=== PATIENT | female | born 1995 | race Caucasian/White ===

== ENCOUNTER 2024-09-15 12:53 | Inpatient (IN) | payer SELFPAY ==
--- OUTSIDE RECORDS SUMMARY | 2024-01-09 11:37 | XMS_ITS ---
Author Organization [facility] Accounts Recei vable Address [address] [place] [address] Care Team Providers Care Thread Trimmer Name Role Phone Neville Jessica Primary Care Provider [phone] REASON FOR VISIT Hospital/ER Follow-Up Non TCM* Social History Sex Assigned At : Social History Observation Description Sex Assigned At Female Encounters Encounter Location Date Provider Diagnosis [address] [place] [address] 01/09/2024 Jessica Lozada Plan Of Treatment No Information Progress Notes * Monica DONG MDOB:1995 (28 yo F)Acc No.[id number]:01/09/2024 Patient: Nisha RACHEL Monica Keith :1995 A ge:28 Y S ex:Female [address] [facility] [place] [address] * true * Date: Generated for Printi ng/Faxing/eTransmitting on: 0 09/15/2024 01:08 PM CDT
--- OUTSIDE RECORDS SUMMARY | 2024-01-30 03:43 | XMS_ITS ---
Author Organization [facility] Accounts Recei vable Address [address] [place] [address] Care Team Providers Care Student Services Counselor Name Role Phone Neville Jessica Primary Care Provider REASON FOR VISIT Transition of Care: Medical* Social History Sex Assigned At : Social History Observation Description Sex Assigned At Female Encounters Encounter Location Date Provider Diagnosis [address] [place] [address] 01/30/2024 Jessica Lozada Plan Of Treatment No Information Progress Notes * Monica DONG MDOB:1995 (28 yo F)Acc No.[id number]:01/30/2024 Patient: Monica KNOX :1995 A ge:28 Y S ex:Female Address[facility] [address] [facility] [place] [address] Subjective: * Chief Complaints: * T ransition of Care: Medical* * HPI: T ransition of Care: Transition of Care Follow-Up T yue's Date 1 04/01/2023 [facility] Status I n-Patient H ospitalization Type M edical D ate of Discharge 1 03/30/2023 D ate contacted by [facility] Nurse 1 04/01/2023 * Medical History: * Surgical History: * Hospitalization/Major Diagno stic Procedure: * Medications: Objective: * Vitals: * Physical Examination: Assessment: Plan: * Treatment: * Procedure Codes: * true * Date: Generated for Terri sanabria/Cindi/eTransmitting on: 0 09/15/2024 01:09 PM CDT History and Physical Notes * HPI (History of Present Illness) Category Sub-Category Detail Notes Transition of Care Transition of Care Follow-Up Today' s Date: 01/30/2024 Hospital Name: [facility] Hospitalization Status: In-Patient Hospitalization Type: Medical Date of Discharge: 01/28/2024 Date contacted by [facility] Nurse:
--- OUTSIDE RECORDS SUMMARY | 2024-03-03 04:15 | XMS_ITS ---
Author Organization [facility] Address [address], [place] [address] Care Team Providers Care Meat Hostess Name Role Phone Renee Silva Primary Care Provider REASON FOR VISIT 2 wk f/u pp depression Encounters Encounter Location Date Provider Diagnosis [facility] [address] [facility] [place] [address] 03/03/2024 Renee Silva Plan Of Treatment No Information Progress Notes * TIFFANY DONGOB:1995 ([age] yo F)Acc No.[id number]:03/03/2024 Progress Notes Patient: SHILA KNOX Provider: Klaus Silva MD :1995 A ge:28 Y S ex:Female Date:03/03/2024 [address] [facility] Subjective: * Chief Complaints: * 1 . 2 wk f/u pp depression. * Medical History: * Control Panel Builder History: P eriods : i rregular, heavy [...] 0 09/19/2018, normal spontaneous vaginal delivery (), [facility] Dr. Zavala, Male infant. P regnancy # 2: 0 2021:, normal spontaneous vaginal delivery (), [facility] Dr. Zavala, Male infant, 8lb 3oz. P regnancy # 3 1 03/29/2023, normal spontaneous vaginal delivery () @ 40.3 weeks, [facility]- Dr. Silva, Female. Objective: * Vitals: Assessment: Plan: * Treatment: * * Electronic signature of Renee Silva MD on 09/15/2024 at 01:08 PM CDT Sign off status: Pending * Provider: Klaus Silva MD Date: 0 03/03/2024 Generated for Terri sanabria/Cindi/Rajivitting on: 0 09/15/2024 01:08 PM CDT
--- OUTSIDE RECORDS SUMMARY | 2024-03-18 09:30 | XMS_ITS ---
Author Organization [facility] Address [address] [place], [place] [address] Care Team Providers Care Director Of Email Marketing Name Role Phone Renee Silva Primary Care Provider REASON FOR VISIT 2 wk f/u pp depression Encounters Encounter Location Date Provider Diagnosis [facility] [address] [facility] [place] [address] 03/18/2024 Renee Silva Plan Of Treatment No Information Progress Notes * TIFFANY DONGOB:1995 ([age] yo F)Acc No.[id number]:03/18/2024 Progress Notes Patient: SHILA KNOX Provider: Klaus Silva MD :1995 A ge:28 Y S ex:Female Date:03/18/2024 [address] [facility] Subjective: * Chief Complaints: * 1 . 2 wk f/u pp depression. 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 Zavala, Male infant. P regnancy # 2: 0 2021:, normal spontaneous vaginal delivery (), [facility] Dr. Zavala, Male infant, 8lb 3oz. P regnancy # 3 1 03/29/2023, normal spontaneous vaginal delivery () @ 40.3 weeks, [facility]- Dr. Silva, Female. Objective: * Vitals: Assessment: Plan: * Treatment: * * Electronic signature of Renee Silva MD on 09/15/2024 at 01:08 PM CDT Sign off status: Pending * Provider: Klaus Silva MD Date: 03/18/2024 Generated for Terri sanabria/Cindi/Rajivitting on: 0 09/15/2024 01:08 PM CDT
--- OUTSIDE RECORDS SUMMARY | 2024-04-03 06:20 | XMS_ITS ---
Author Organization [facility] Accounts Recei vable Address [address] [place] [address] Care Team Providers Care Debit Agent Name Role Phone Jessica Lozada Primary Care Provider Allergies No Known Allergies Results Component Value Reference Range Notes Urinalysis, Routine Reviewed date:04/03/2024 02:31:32 PM Interpretation: Performing Lab: Notes/Report: Glucose Negative Bilirubin Negative Ketones Negative Specific [place] >=1.030 Blood Trace pH 6.0 Protein Negative Urobilinogen,Semi-Qn 0.2 Nitrite, Urine Positive Leukocyte Estrace Negative CHLAMYDIA/N. GONORRHOEAE RNA , TMA URINE/SURESWAB Reviewed date:04/08/2024 12:13:24 PM Interpretation: Performing Lab:[place], [facility]-[id number] Ramonita Pina, [id number] Haroon Hammond MD Notes/Report: NON-FASTING NON-FASTING CHLAMYDIA TRACHOMATIS RNA, TMA, UROGENITAL NOT DETECTED NOT DETECTED NEISSERIA GONORRHOEAE RNA, TMA, UROGENITAL NOT DETECTED NOT DETECTED CULTURE, URINE, ROUTINE Reviewed date:04/08/2024 12:13:24 PM Interpretation: Performing Lab:[place], [facility] [facility] Bill [id number] Abel Mendez M.D. Notes/Report: NON-FASTING NON-FASTING URINE CULTURE [id number] Routine Cultures SPECIMEN: Urine SOURCE: URINE FINAL REPORTS Verified Date/Time: 04/05/2024 09:49 BIOFUELS MANAGER 10,000-50,000 cfu/ml Escherichia coli 50,000-100,000 cfu/ml Escherichia [...] Nonsmoker Encounters [facility] [address] [facility] [place] [address] 04/03/2024 Jessica Lozada Dysuria R30.0 ; Acut e UTI N39.0 [...] * Monica DONG MDOB:1995 (28 yo F)Acc No.[id number]:04/03/2024 Progress Notes Patient: Monica KNOX Provider: Emmie Lozada APRN :1995 A ge:28 Y S ex:Female Date:04/03/2024 Address:[address] [place], [place] [id number] Patient's Default Facility:[facility] Baljinder Check In:11:21 AM CSTCheck O ut:11:43 AM BIOFUELS MANAGER Subjective: * Chief Complaints: * p ossible [...] or heat intolerance, NO symptoms reported. H ematologic:?Denies: , unusual bruising or bleeding, enlarged lymph [...] Diagno stic Procedure: U pper EXtremity Injury .[facility] 11.29.2018 * Family History: F ather: alive. M other: alive. 1 son(s) - healthy. . * Social History: S ocial Determinants of Health Would you like a staff member from [facility] to help you access community resources [...] * Jessica Lozada 04/07/2024 01: 07:24 PM BIOFUELS MANAGER >neg for sti. shows uti. finish abx. Brenda Sullivan 04/08/2024 12:11:30 PM BIOFUELS MANAGER >ttc client-phone is not in service. Sending letter. ?LAB: Urinalysis, Routine (Collection Date & Time - 04/03/2024)* Value Reference Range G lucose Negative * B ilirubin Negative * K etones Negative * S pecific [place] >=1.030 * B lood Trace * p H 6.0 * P rotein Negative * U robilinogen,Semi-Qn 0.2 * N itrite, Urine Positive * L eukocyte Estrace Negative * Malorie Spivey 04/03/2024 11:4 8:28 AM BIOFUELS MANAGER > Culture sent to [facility].Jessica Lozada 04/03/2024 02:31:24 PM BIOFUELS MANAGER >culture sent 2.?Acute UTI? Start Cephalexin Capsule, 500 MG, 1 capsule, Orally, every 6 hrs, 7 days, 28 Capsule, Refills 0. ?LAB: CULTURE, URINE, ROUTINE (Collection Date & Time - 04/03/2024 11:52 AM) * Value Reference Range C ULTURE [id number] - * Jessica Lozada 04/07/2024 01: 07:24 PM BIOFUELS MANAGER >neg for sti. shows uti. finish abx. Brenda Sullivan 04/08/2024 12:11:30 PM BIOFUELS MANAGER >ttc client-phone is not in service. Sending [...] AM) * Value Reference Range C ULTURE [id number] - * Jessica Lozada 04/07/2024 01: 07:24 PM BIOFUELS MANAGER >neg for sti. shows uti. finish abx. Brenda Sullivan 04/08/2024 12:11:30 PM BIOFUELS MANAGER >ttc client-phone is not in service. Sending letter. 4.?Others? Notes: A Healthy Lifestyle: Care Instructions material was printed?? * Procedure Codes: 8 1003 URINALYSIS, AUTO, W/O SCOPE, Modifiers: QW 22887 N.GONORRHOEAE, DNA, AMP PROB (Medicaid)67179 CHYLMD TRACH, DNA, AMP PROBE (Medicaid)12331 URINE BACTERIA CULTURE (Medicaid) * Preventive Medicine: Education : N utrition and Physical Activity Counseling for nutrition provided Y es Counseling for physical activity Y es Date Counseled 0 04/03/2024 P MAIL LIST LIBRARIAN/Huddle Complete?: Pre-Visit Planning Complete Y es B [place] and Dietary Counsultation BMI mgmt provided Y [...] schedule * Billing Information: * Visit Code: 90036 Office Visit, Est Pt., Level 3. * Procedure Codes: 36538 URINALYSIS, AUTO, W/O SCOPE. Modifiers: QW 18577 N.GONORRHOEAE, DNA, AMP PROB (Medicaid). 22579 CHYLMD TRACH, DNA, AMP PROBE (Medicaid). 50599 URINE BACTERIA CULTURE (Medicaid). * UELS MANAGER Sign off status: Completed true * Provider: Emmie Lozada APRN Date: 0 04/03/2024 Generated for Terri sanabria/Cindi/Rajivitting on: 0 09/15/2024 01:08 PM CDT History and Physical Notes * [...]
--- OUTSIDE RECORDS SUMMARY | 2024-06-24 08:15 | XMS_ITS ---
Author Organization [facility] Address [address], [place] [address] Care Team Providers Care Grocery Clerk Marking Name Role Phone Renee Silva Primary Care Provider [phone] REASON FOR VISIT F/U on meds Medications Medication SIG (Take, Route, Frequency, Duration) Notes Start Date End Date Status Cephalexin 500 MG TAKE 1 CAPSULE BY MO [facility] EVERY 8 HOURS FOR 7 DAYS Oral; Duration: 7 Days Not-Takin g Melatonin Not-Taking Cephalexin 500 MG 1 capsule (uti) Oral ly twice daily; Duration: 7 days 03/05/2024 Active Sertraline HCl 50 MG 1 tablet Orally Once a day; Duration: 30 days Depression 02/11/2024 Active Classic 28-0.8 MG 1 tablet Orally Once a day Not-Taking Vitamin 27-0.8 MG 1 tablet Orally daily; Duration: 90 days Not-Taking Ibuprofen 600 MG 1 tablet Orally Thre e times a day as needed for pain; Duration: 30 days Not-Taking Colace 100 MG 1 capsule Orally twi ce daily as needed to keep stools soft; Duration: 30 day(s) Not-Taking Encounters Encounter Location Date Provider Diagnosis [facility] [address] [facility] [place] [address] 06/24/2024 Renee Silva Plan Of Treatment No Information Progress Notes * SOY, TIFFANYOB:1995 ([age] yo F)Acc No.[id number]:06/24/2024 Progress Notes Patient: SHILA KNOX Provider: Klaus Silva MD :1995 A ge:28 Y S ex:Female Date:06/24/2024 Address:[address] [place] [address], [id number] Subjective: * Chief Complaints: * 1 . F/U on meds. * Medical History: * Medications: T aking Sertraline HCl 50 MG Tablet 1 tablet Orally Once a day Depression, Taking Cephalexin 500 MG Capsule 1 capsule (uti) Orally twice daily , Not- Taking/PRN Classic 28-0.8 MG Tablet 1 tablet Orally Once a day , Not-Taking/PRN Colace 100 MG Capsule 1 capsule Orally twice daily as needed to keep stools soft , Not-Taking/PRN Ibuprofen 600 MG Tablet 1 tablet Orally Three times a day as needed for pain , Not-Taking/PRN Vitamin 27-0.8 MG Tablet 1 tablet Orally daily , Not-Taking/PRN Melatonin , Not-Taking/PRN Cephalexin 500 MG Capsule TAKE 1 CAPSULE BY MOUTH EVERY 8 HOURS FOR 7 DAYS Oral Objective: * Vitals: Assessment: Plan: * Treatment: * * Electronic signature of Renee Silva MD on 09/15/2024 at 01:09 PM CDT Sign off status: Pending * Provider: Klaus Silva MD Date: 06/24/2024 Generated for Terri sanabria/Cindi/Alphonse on: 09/15/2024 01:09 PM CDT
[2024-09-15 12:54] VITALS: BMI 25.1
--- NOTE | 2024-09-15 12:57 | XRR_ITS ---
PROCEDURE INFORMATION: Exam: XR Chest Exam date and time: 09/15/2024 1:00 PM Age: 29 years old Clinical indication: Pain; Angina pectoris; Additional info: Cp TECHNIQUE: Imaging protocol: Radiologic exam of the chest. Views: 1 view. COMPARISON: No relevant prior studies available. FINDINGS: Lungs: No focal consolidation. Pleural spaces: No pleural effusion. No pneumothorax. Heart/Mediastinum: No cardiomegaly. Bones/joints: Unremarkable. XR/XR chest 1V portable [id number] IMPRESSION: No acute pulmonary process.
[2024-09-15 13:02] VITALS: BP 141/71; PULSE 78; RESP 16; TEMP 36.7; O2SAT 97
--- NOTE | 2024-09-15 13:05 | PC.NURSE ---
PATIENT CONTINUES TO STATE THAT IS GOING TO [facility].
--- OUTSIDE RECORDS SUMMARY | 2024-09-15 13:08 | XMS_ITS | Patient Health Record ---
Author Organization [facility] Address [address] [place] [address] Care Team Providers Care Deicer Repairer Name Role Phone Jessica Lozada APRN Primary Care Provider Talib Pearson [phone] Allergies No Known Allergies Reason For Referral No Information Social History Tobacco Use: Social History Observation Description Date Details (start date - stop date) Former Smoker NA - NA Social History Drugs/Alcohol: Social Info Question Answer Notes Alcohol Screen (Audit-C) Did you have a drink containing alcohol in the past year? No Points 0 Interpretation Negative Drugs Have you used drugs other than those for medical reasons in the past 12 months? No Tobacco Use: Social Info Question Answer Notes xTobacco Use/Smoking Are you a former smoker Additional Findings: Tobacco User e-Cigarette Tobacco use other than smoking: Are you an other tobac co user? No Problems Problem Type SNOMED Code ICD Code Onset Dates Problem Status W/U Status Risk Notes Problem Acute urinary tract infection (682061956) Acute UTI (N39.0) Active confirmed Problem Right renal stone (N20.0) Active confirmed Plan Of Treatment Pending Test Test Name Order Date Abdomen [id number] 07/17/2022 Medical (General) History Medical History History ICD Code right renal stone Surgical History Surgery Date(Month/Year) cholecystectomy left elbow fracture repair
--- OUTSIDE RECORDS SUMMARY | 2024-09-15 13:08 | XMS_ITS | Patient Health Record ---
Author Organization [facility] Accounts Recei vable Address [address] [place] [address] Care Team Providers Care [employer] Roofer Name Role Phone Jessica Lozada Primary Care Provider IanDionicio Unavailable [phone] Allergies No Known Allergies Results Component Value Reference Range Notes Urinalysis, Routine Reviewed date:04/03/2024 02:31:32 PM Interpretation: Performing Lab: Notes/Report: Glucose Negative Bilirubin Negative Ketones Negative Specific Hagan >=1.030 Blood Trace pH 6.0 Protein Negative Urobilinogen,Semi-Qn 0.2 Nitrite, Urine Positive Leukocyte Estrace Negative CHLAMYDIA/N. GONORRHOEAE RNA , TMA URINE/SURESWAB Reviewed date:04/08/2024 12:13:24 PM Interpretation: Performing Lab:[place], [facility]-[id number] Ramonita Pina, [id number] Haroon Hammond MD Notes/Report: NON-FASTING NON-FASTING CHLAMYDIA TRACHOMATIS RNA, TMA, UROGENITAL NOT DETECTED NOT DETECTED NEISSERIA GONORRHOEAE RNA, TMA, UROGENITAL NOT DETECTED NOT DETECTED CULTURE, URINE, ROUTINE Reviewed date:04/08/2024 12:13:24 PM Interpretation: Performing Lab:[place], [facility] [facility] Bill [id number] Abel Mendez M.D. Notes/Report: NON-FASTING NON-FASTING URINE CULTURE [id number] Routine Cultures SPECIMEN: Urine SOURCE: URINE FINAL REPORTS Verified Date/Time: 04/05/2024 09:49 DRYWALL SPRAYER 10,000-50,000 cfu/ml Escherichia coli 50,000-100,000 cfu/ml Escherichia coli #2 Mixed urogenital josue also present Order Comments O1: Culture Urine (URINE CULTURE) (C Urine) NON-FASTING NON-FASTING Strep-A Screen Reviewed date:10/24/2023 09:26:18 AM Interpretation:Strep Negative: Culturing available, 97% sens., 95% spec., prev. 25% Performing Lab: Notes/Report: Strep Negative: Culturing available, 97% sens., 95% spec., prev. 25% Test Time 5 min Strep Negative: Culturing available, 97% sens., 95% spec., prev. 25% Negative Coronavirus/Influenza Combo (IN HOUSE) Reviewed date:10/24/2023 09:26:18 AM Interpretation:Negative Performing Lab: Notes/Report: Negative Coronavirus Not Detected Influenza A Negative Influenza B Negative Reason For Referral No Information Medications Medication SIG (Take, Route, Frequency, Duration) [...] (12+) Question Answer Notes Tobacco use: Nonsmoker Problems Problem Type SNOMED Code ICD Code Onset Dates Problem Status W/U Status Risk Notes Problem Menstrual disorder (320890420) Irregular menses (N92.6) Active confirmed Problem 57290274 Kidney stone (N20.0) Active confirmed Problem Gastroesophageal reflux disease (949841030) GERD (gastroesopha geal reflux disease) (K21.9) Active confirmed Problem Memory loss (96423690) Memory loss (R41.3) Active confirmed Problem History of infectious disease (767268294) History of chlamydia infection (Z86.19) Active confirmed Problem At moderate risk for dental caries (finding) (409099102) Risk for dental caries, moderate (Z91.842) Active confirmed Problem At high risk for dental caries (finding) (879977253) Risk for dental caries, high (Z91.843) Active confirmed Problem Cerebral cyst (42312518) 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) Active confirmed Problem 236898767 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 Problem Cerebral cyst (52033221) Cyst of brain (G93.0) Active confirmed Vital Signs Heart Rate 76 Minute 10/24/2023 Temperature 97.5 degrees Fahrenheit 10/24/2023 Respiratory Rate 20 /min 10/24/2023 Oximetry 98 Percent 10/24/2023 Blood pressure diastolic 70 mm Hg 10/24/2023 Height 69 in 10/24/2023 Blood pressure systolic 130 mm Hg 10/24/2023 Weight 237.8 lbs 10/24/2023 BMI 35.11 kg/m2 10/24/2023 Encounters Encounter Location Date Provider Diagnosis [address] [address] 01/01/2024 Jessica Lozada [address] [place] [address] 01/09/2024 Jessica Neville [address] [address] 01/30/2024 Jessica Sh[place]f [address] [address] 10/24/2023 Dionicio Sosa Acute cough R05.1 ; Sore throat J02.9 and Runny nose R09.[address] [address] 04/03/2024 Jessica Lozada Dysuria R30.0 ; Acut e UTI N39.0 and Abnormal urinalysis R82.90 Assessments Encounter Date Diagnosis (ICD Code) Assessment Notes Treatment Notes Treatment Clinical Notes 04/03/2024 Acute UTI (ICD-10 - N39.0) Discussed [...] urine for sti. abx sent for uti 10/24/2023 Sore throat (ICD-10 - J02.9) Strep negative. Suspect drainage related. Increase fluids/water. OTC medications per her OB approved list of OTC medications. 10/24/2023 Acute cough (ICD-10 - R05.1) Covid and flu negative. Suspect drainage related. Increase fluids/water. OTC medications per OB approved med list during . Education on s/s to monitor for and to notify provider if any develop or if any concerns. Pt verbalized understanding. 04/03/2024 Dysuria (ICD-10 - R30.0) 04/03/2024 Abnormal urinalysis (ICD-10 - R82.90) 10/24/2023 Runny nose (ICD-10 - R09.89) Flonase as directed. 10/24/2023 Other A Healthy Lifestyle: Care Instructions material was printed 01/01/2024 Other A Healthy Lifestyle: Care Instructions material was printed 04/03/2024 Other A Healthy Lifestyle: Care Instructions material was printed Plan Of Treatment No Information Insurance Providers Payer Name Payer Address Payer Phone Subscriber Number Group Number Insured Name Patient Relationship to Insured Coverage Start Date Coverage End Date [place] [employer] Medicaid Exch [address] [place] [address] [phone] [id number] Monica Dong Self - patient is the insured [employer] for Adults [address] [place] [address] [id number] Monica Dong Self - patient is the insured Medical (General) History Medical History History ICD Code None Surgical History Surgery Date(Month/Year) right foot left capitellar fracture repair 12/07/19 19 cholecystectomy Hospitalization History Reason Date(Month/Year) Upper EXtremity Injury .[facility] 11.29.2018
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
--- NOTE | 2024-09-15 13:14 | ED.C_ITS ---
HPI - Psych 2 General: Chief Complaint: Psychiatric Symptoms Stated Complaint: si Time Seen by Provider: 09/15/24 12:55 Source: patient Mode of arrival: ambulatory Limitations: no limitations History of Present Illness: 29-year-old female who is here from the crisis center for then placed her on a 96-hour hold. Patient crisis center stated she had been having some loose nation she did have a miscarriage over a week ago has been under a lot of stressors she stated she went to kill herself the crisis center. She admits to having passive suicidal thoughts here but is upset she is here under 96-hour hold. She has had previous suicide attempts in the past Associated symptoms: Reports depression and suicidal ideation Related Data Home Medications ?Medication ?Instructions ?Recorded ?Confirmed No Known Home Medications 09/15/2408/27 Allergies Allergy/AdvReac Type Severity Reaction Status Date / Time No Known Allergies Allergy Unverified 09/15/24 14:16 Review of Systems 2 Const: Denies: fever(s), chills, body aches or change in appetite ENMT: Denies: throat pain or dental pain Card: Denies: chest pain Resp: Denies: dyspnea GI: Denies: abdominal pain, nausea, vomiting or diarrhea Musc: Denies: neck pain or back pain Skin/Breast: Denies: rash Neuro: Denies: headache(s) Psych: Reports: depression and suicidal ideation Physical Exam 2 Const: COMMON NORMALS: no acute distress, patient oriented x3 and healthy appearing HENMT: COMMON NORMALS: normocephalic and atraumatic HEAD & SCALP: n ormocephalic and atraumatic Neck/C-Spine: COMMON NORMALS: full ROM and supple Chest: COMMONS NORMALS: normal inspection of the chest Resp: COMMON NORMALS: normal respiratory effort, No retractions, No use of accessory muscles and clear to auscultation bilaterally AUSCULTATION: clear to auscultation bilaterally Cardio: COMMON NORMALS: regular rate, regular rhythm and No murmurs present (Cardio) RATE: regular rate RHYTHM: regular rhythm GI: COMMON NORMALS: Normal to inspection, nondistended, normoactive bowel sounds present, Soft to palpation, non-tender and no masses PALPATION: Yes Soft to palpation Extremity: COMMON NORMALS: normal to inspection and full ROM Neuro: COMMON NORMALS: patient oriented x3, moves all extremities and no focal motor deficits Psych: ATTITUDE: Yes paranoid and Yes bizarre THOUGHT CONTENT: Yes Suicidality present Skin: COMMON NORMALS: no rashes or lesions noted and no wounds GENERAL SKIN EXAM: no rashes or lesions noted Course 2 Vital Signs: Vital signs: Vital Signs Temperature 98.1 F 09/15/24 13:02 Pulse Rate 97 09/15/24 13:48 Respiratory Rate 16 09/15/24 13:02 Blood Pressure 141/71 09/15/24 13:02 Pulse Oximetry 99 09/15/24 13:48 Oxygen Delivery Me thod Room Air 09/15/24 13:48 MDM - Psych Medical Decision Making Patient presents here with depression along with suicidality patient was placed under 96-hour hold by the crisis center. She has been well-appearing here she is medically cleared I spoke to psychiatrist will admit. Medical Records I reviewed the patient's medical records. Lab Data I reviewed the patient's lab results. 09/15/24 13:37 09/15/24 13:37 Radiology Impressions Chest X-Ray 09/15/24 12:57 IMPRESSION: No acute pulmonary process. Laboratory Results WBC 10.88 10^3/uL (3.29-11.43) 09/15/24 13:37 RBC 4.50 10^6/uL (3.85-5.65) 09/15/24 13:37 Hgb 14.50 g/dL (11.27-16.99) 09/15/24 13:37 Hct 43.2 % (36-47) 09/15/24 13:37 MCV 96.0 fl (85-98) 09/15/24 13:37 MCH 32.2 pg (27-33) 09/15/24 13:37 MCHC 33.6 g/dL (30-55) 09/15/24 13:37 RDW 13.3 % (12.1-15.1) 09/15/24 13:37 Plt Count 327 10^3/cmm (157-399) 09/15/24 13:37 MPV 9.4 fL (7.4-10.4) 09/15/24 13:37 Neut % (Auto) 61.4 % 09/15/24 13:37 Lymph % (Auto) 28.6 % 09/15/24 13:37 [place] % (Auto) 4.4 % 09/15/24 13:37 Eos % (Auto) 3.8 % 09/15/24 13:37 Baso % (Auto) 1.6 % 09/15/24 13:37 Neut # (Auto) 6.69 10^3/uL (1.8-7.7) 09/15/24 13:37 Lymph # (Auto) 3.1 10^3/uL (0.8-4.8) 09/15/24 13:37 [place] # (Auto) 0.5 10^3/uL (0.2-0.9) 09/15/24 13:37 Eos # (Auto) 0.4 10^3/uL (0.0-0.8) 09/15/24 13:37 Baso # (Auto) 0.2 10^3/uL (0.0-0.1) H 09/15/24 13:37 Nucleated RBC % (auto) 0 % 09/15/24 13:37 Nucleated RBCs # 0.0 /100WBC 09/15/24 13:37 Sodium 139 mmol/L (136-145) 09/15/24 13:37 Potassium 3.7 mmol/L (3.5-5.1) 09/15/24 13:37 Chloride 104 mmol/L (98-107) 09/15/24 13:37 Carbon Dioxide 21 mmol/L (22-29) L 09/15/24 13:37 Anion Gap 17.7 (5-19) 09/15/24 13:37 BUN 14 mg/dL (6-20) 09/15/24 13:37 Creatinine 0.7 mg/dL (0.5-0.9) 09/15/24 13:37 GFR Calculation 100.4 mL/min (90-130) 09/15/24 13:37 Glucose 99 mg/dL (65-115) 09/15/24 13:37 Calculated Osmolality 289 mOsm/kg (285-295) 09/15/24 13:37 Calcium 9.3 mg/dL (8.5-10.5) 09/15/24 13:37 Total Bilirubin 0.5 mg/dL (0.15-1.2) 09/15/24 13:37 AST 11 U/L (0-32) 09/15/24 13:37 ALT 10 U/L (0-33) 09/15/24 13:37 Alkaline Phosphatase 104 U/L (35-105) 09/15/24 13:37 Total Protein 7.2 g/dL (6.6-8.7) 09/15/24 13:37 Albumin 4.4 g/dL (3.5-5.2) 09/15/24 13:37 Globulin 2.8 g/dL (1.3-4.6) 09/15/24 13:37 HCG, Qual Negative (Negative) 09/15/24 13:49 Salicylates < 0.3 mg/dL (3-10) L 09/15/24 13:37 Urine Opiates Screen Negative ng/mL (Negative) 09/15/24 13:49 Acetaminophen < 5.0 ug/mL (10-30) L 09/15/24 13:37 Ur Barbiturates Screen Negative ng/mL (Negative) 09/15/24 13:49 Ur Phencyclidine Scrn Negative ng/mL (Negative) 09/15/24 13:49 Ur Amphetamines Screen Negative ng/mL (Negative) 09/15/24 13:49 U Benzodiazepines Scrn Negative ng/mL (Negative) 09/15/24 13:49 Urine Cocaine Screen Negative ng/mL (Negative) 09/15/24 13:49 U Marijuana (THC) Screen Positive ng/mL (Negative) H 09/15/24 13:49 Ethyl Alcohol < 10 mg/dL (0-10) 09/15/24 13:37 All radiology interpretation(s) finalized by discharge Discharge Plan Discharge Patient Disposition: Admitted As Inpatient Clinical Impression: Suicidal ideation Condition: Stable Coding Level of Care Code ED 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
--- NOTE | 2024-09-15 13:37 | PC.NURSE ---
Involuntary 96 hour hold rights read and reviewed with patient. Santos from security present during reading of rights. Patient verbalized understandings and copy of rights given to patient.
[2024-09-15 13:42] LABS: Hematocrit 43.2 % (36-47); Hemoglobin 14.50 g/dL (11.27-16.99); Mean Corpuscular HGB Conc 33.6 g/dL (30-55); Mean Corpuscular Hemoglobin 32.2 pg (27-33); Mean Corpuscular Volume 96.0 fl (85-98); Nucleated Red Blood Cells % 0 %; Platelet Count 327 10^3/cmm (157-399); Red Blood Count 4.50 10^6/uL (3.85-5.65); White Blood Count 10.88 10^3/uL (3.29-11.43)
[2024-09-15 13:48] VITALS: PULSE 97; O2SAT 99
[2024-09-15 14:02] LABS: Alanine Aminotransferase 10 U/L (0-33); Albumin Level 4.4 g/dL (3.5-5.2); Alkaline Phosphatase 104 U/L (35-105); Anion Gap 17.7 (5-19); Aspartate Amino Transferase 11 U/L (0-32); Blood Urea Nitrogen 14 mg/dL (6-20); Calcium 9.3 mg/dL (8.5-10.5); Carbon Dioxide 21 mmol/L (22-29); Chloride 104 mmol/L (98-107); Creatinine Clr Calc Pharmacy 134.4784; Globulin 2.8 g/dL (1.3-4.6); Glucose 99 mg/dL (65-115); Osmolality Calculated 289 mOsm/kg (285-295); Potassium 3.7 mmol/L (3.5-5.1); Sodium 139 mmol/L (136-145); Total Protein 7.2 g/dL (6.6-8.7)
[2024-09-15 14:07] LABS: Acetaminophen < 5.0 ug/mL (10-30); Alcohol Level < 10 mg/dL (0-10); Salicylate < 0.3 mg/dL (3-10)
--- NOTE | 2024-09-15 14:16 | PC.PHAR ---
pts' medications last filled at [facility] [phone]. They show last fill of any medications was 04/03/24 for Keflex 500mg q6h and Sertraline 50mg daily. No allergies on her profile, there.
[2024-09-15 14:19] LABS: PCP Screen Urine Negative (Negative)
[2024-09-15 14:46] LABS: HCG Qualitative Urine. Negative (Negative)
[2024-09-15 16:01] VITALS: PULSE 73; RESP 16; O2SAT 98
[2024-09-15 17:26] VITALS: PULSE 78; O2SAT 91
[2024-09-15 20:29] VITALS: BP 91/70; PULSE 64; RESP 18; TEMP 37; O2SAT 100
[2024-09-16 06:00] VITALS: BP 96/55; PULSE 68; RESP 16; O2SAT 98
--- NOTE | 2024-09-16 08:52 | PC.OT ---
OT orders received, chart reviewed. OT attempted though patient was asleep. Attempted to wake though was unsuccessful. RN says they will attempt to wake patient later for medication. Will re-attempt OT evaluation when patient is awake and ready to participate.
[2024-09-16 14:00] VITALS: BP 92/59; PULSE 61; RESP 16; TEMP 36.8; O2SAT 99
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
[2024-09-16 19:56] VITALS: BP 102/58; PULSE 92; RESP 18; O2SAT 97
[2024-09-17 06:00] VITALS: BP 90/50; PULSE 61; RESP 16; O2SAT 96
[2024-09-17 14:00] VITALS: BP 105/67; PULSE 93; RESP 17; TEMP 37.4; O2SAT 99
--- NOTE | 2024-09-17 19:16 | P.NPUPN_ITS ---
Subjective NPU 2 Subjective: Patient presented today reporting that she is doing okay with the medication and having no ill effects from it. We discussed her continuing to use possible Zyprexa Zydis or Haldol as a as needed but potentially regular medication for her emotional instability and reactive agitation. We discussed the likelihood of discharge in the next 48 hours. She denied any side effects to medication. Mental Status Exam 2 MSE Comments: This is a well-nourished, well-developed white female in hospital scrubs with adequate grooming and eye contact. No abnormal movements except for mild psychomotor agitation. Mostly cooperative with exam in mild to moderate distress. Speech was normal rate and decreased volume. Mood described as depressed, affect congruent. Thought process mostly linear. Thought content: Patient denies suicidal or homicidal ideation, there were no delusions reported or noted, she did not report any auditory or visual hallucinations. Reports a voice suggesting self-harm but denies intent, expressing a desire to live for the children. Experiences bad anxiety, exacerbated by current events and paranoia about safety, particularly concerning the children. Reports extreme depression, possibly , with a history of depression throughout life. Describes mood swings from extreme rage to extreme depression. 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 Reports recovering memories related to past trauma. Attention and concentration were intact and memory was mostly reliable but none were formally tested. She is alert and oriented x 3. Insight and judgment are limited, impulse control impaired. Vitals/I&O/Wt Last Vital Signs Temp 98.6 F 09/17/24 19:54 Pulse 72 09/17/24 19:54 Resp 18 09/17/24 19:54 BP 115/78 09/17/24 19:54 Pulse Ox 98 09/17/24 19:54 O2 Del Method Room Air 09/16/24 14:00 Data NPU 09/15/24 13:37 09/15/24 13:37 A&P Assessment and plan 1. Suicidal ideation: 2. Major depressive disorder, recurrent: 3. Borderline personality disorder: 4. PTSD (post-traumatic stress disorder): Plan: This is a 29-year-old white female known to [facility] from past inpatient psychiatric services who reports she presented to a [facility] appointment which led to her being put on a hold which she reports was unnecessary. She reports that depression is present, characterized by extreme mood swings from rage to depression. She also endorses that borderline Personality Disorder (BPD) is also present, contributing to emotional instability and anger issues. There is a history of depression and anxiety, exacerbated by recent life stressors and past trauma. The patient reports feeling as though they are fighting demons, which may suggest internal conflict or distress related to past experiences. There is no current suicidal ideation, but there is a history of self-injurious behavior and a past suicide attempt. 1. Started Wellbutrin XL 150 mg p.o. daily. 2. Continue every 15 minute checks for safety. 3. Encourage individual, group and milieu therapy. 4. Recommend sober living treatment after discharge at the highest level care to which she is willing to commit. 5. Obtain collateral information. 6. Observe against the backdrop of the 96-hour hold. PDMP PDMP Reviewed: Not Reviewed Involuntary Hold Information 2 Hold Status: Legal Status: 96 Hour Hold Date/Time Hold Expires: 09/19/24 @ 13:13 Attestations NPU 2 Medical Necessity Statement*: Inpatient hospitalization is medically necessary to be clinically appropriate intervention at this time. Will monitor medications and make changes as indicated. Likely length of stay 1-3 days. Coding Level of Care Code Acute Code for g Fwd Diagnoses Suicidal ideation R45.851 Major depressive disorder, recurrent F33.9 Borderline personality disorder F60.3 PTSD (post-traumatic stress disorder) F43.10
[2024-09-17 19:54] VITALS: BP 115/78; PULSE 72; RESP 18; TEMP 37; O2SAT 98
[2024-09-18 06:00] VITALS: BP 125/65; PULSE 106; RESP 18; O2SAT 98
[2024-09-18 14:33] VITALS: BP 125/65; PULSE 106; RESP 18; O2SAT 98
== END 2024-09-18 15:40 | disposition home or self-care (01) | DRG 776 ==
LOC: ER 15:53 → NP 16:53
PROVIDERS: Admitting Provider Psychiatry & Neurology Psychiatry; Emergency Provider Emergency Medicine; Visit Provider Psychiatry & Neurology Psychiatry
DX: O99.345 Other mental disorders complicating the puerperium (principal); F33.9 Major depressive disorder, recurrent, unspecified; R45.851 Suicidal ideations; F60.3 Borderline personality disorder; Z86.59 Personal history of other mental and behavioral disorders; Z91.51 Personal history of suicidal behavior; Z63.4 Disappearance and death of family member; Z62.810 Personal history of physical and sexual abuse in childhood; Z62.812 Personal history of neglect in childhood
CPT/HCPCS: 36415; 71045; 80053; 80306; 80307; 81025; 85025; 97150; 97165; 99285; J9999

== ENCOUNTER 2024-11-24 15:10 | Emergency (ER) | payer SELFPAY ==
--- OUTSIDE RECORDS SUMMARY | 2024-01-01 08:00 | XMS_ITS ---
Author Organization [facility] Accounts Recei vable Address [address] [place] [address] Care Team Providers Care Manager Helpdesk Name Role Phone Jessica Butler Primary Care Provider [phone] Allergies No Known Allergies REASON FOR VISIT Right wrist pain, injured Left ankle Pragland Medications Medication SIG (Take, Route, Frequency, Duration) Notes Start Date End Date Status Vitamins 28-0.8 MG 1 tablet Ora lly Once a day Active Fluticasone Propionate 50 MCG/ACT 1 spray in each nostril Nasally 1-2 times a day for 30 days 10/24/2023 Active Social History Tobacco Use: Social History Observation Description Date Details (start date - stop date) Never Smoker NA - NA Sex Assigned At : Social History Observation Description Sex Assigned At Female . Question Answer Notes Are you a: nonsmoker . Question Answer Notes Did you have a drink containing alcohol in the p ast year? No Points 0 Interpretation Negative Depression Screening PHQ-9 (If positive PHQ-2) Question Answer Notes Little interest or pleasure doing things? More t serna half the days Feeling down, depressed, or hopeless? More than half the days Trouble falling or staying a sleep, or sleeping too much? More than half the days Feeling tired or having little energy? More than half the days Poor appetite or overeating? Not at all Feeling bad about yourself-o r that you are failure or have let yourself or family down? Not at all Trouble concentrating on thi ngs, such as reading the newspaper or watching television? Not at all Moving or speaking so slowly that other people could have noticed. Or the opposite- being so fidgety or restless that you have been moving around a lot more than usual Not at all Thoughts that you would be b ba off , or of hurting yourself in some way? Not at all Total Score 8 Intepretation Mild Depression PHQ2 (12+) Question Answer Notes Little interest or pleasure in doing things? Not at all Feeling down, depressed, or hopeless? Not at all Total Score 0 Sexual History: Question Answer Notes Had sex in the past 12 months (vaginal, oral, or anal) Yes with Men only Use protection? No Prevention Strategies discussed: Condoms Have you ever had an STD? Yes Chlamydia? Yes LMP: 08/23/2022 Alcohol Screening (12+) Question Answer Notes Did you have a drink containing alcohol in the p ast year? No Points 0 Interpretation Negative Smoking Status (12+) Question Answer Notes Tobacco use: Nonsmoker Encounters Encounter Location Date Provider Diagnosis [address] [address] 01/01/2024 Jessica Delarosarajeev Right wrist pain M25.531 and Injury of left ankle, initial encounter S99.912A Assessments Encounter Date Diagnosis (ICD Code) Assessment Notes Treatment Notes Treatment Clinical Notes 01/01/2024 Right wrist pain (ICD-10 - M25.531) 01/01/2024 Injury of left ankle, initial encounter (ICD-10 - S99.912A) 01/01/2024 Other A Healthy Lifes tyle: Care Instructions material was printed Plan Of Treatment Treatment Notes Assessment Notes Other A Healthy Lifestyle: Care Instructions material was printed Progress Notes * Monica DONG MDOB:1995 (29 yo F)Acc No.[id number]:01/01/2024 Progress Notes Patient: Monica KNOX Inna Provider: Emmie Lozada APRN :1995 A ge:28 Y S ex:Female Date:01/01/2024 Address[id number] [facility] Subjective: * Chief Complaints: * 1 . Right wrist pain, injured Left ankle Pragland. * HPI: A . General HPI: Established Jair client presents in clinic today for c/o. * ROS: R OS: Constitutional Symptoms: D enies:, fever, weight loss, extreme fatigue . E yes: D enies:, Negative for, double vision, sudden loss of vision. E ars, Nose, Mouth, Throat: D enies: , sore throat, runny nose, ear pain, sinus pain, nasal congeston. C ardiovascular: D enies:, chest pain, palpitations. R espiratory: D enies:, cough, wheezing, shortness of breath. G astrointestinal: D enies: , nausea, vomiting, abdominal pain, constipation, diarrhea, blood in stools, reflux. S kin: D enies:, rash, changing mole, itching, redness. N eurological: D enies:, headache, persistent weakness or numbness on one side of the body, dizziness. M usculoskeletal: D enies: , joint pain, muscle weakness , Body aches. P sychiatric: D enies: , depression, anxiety, suicidal thoughts. E ndocrine: Denies: , excessive thirst, cold or heat intolerance, NO symptoms reported. H ematologic: D enies: , unusual bruising or bleeding, enlarged lymph nodes. A llergic: N egative for, hay fever . F emale: D enies:, irregular menses, frequent or painful urination, dyspareunia, vaginal discharge, breast pain. * Medical History: N one. * Surgical History: r ight foot , left capitellar fracture repair 12/06/2018, cholecystectomy . * Ocular Surgical History: Ocular Surgical History revi ewed with the patient. * Hospitalization/Major Diagno stic Procedure: U pper EXtremity Injury .formerly [facility] 11.29.2018. * Family History: F ather: alive. M other: alive. 1 son(s) - healthy. . * Social History: S ocial Determinants of Health Would you like a staff member from [facility] to help you access community resources that you may qualify for? (Examples: Food, housing, utilities, health insurance, etc) N o P HQ2 (12+) Little interest or pleasure in doing things? N ot at all Feeling down, depressed, or hopeless? N ot at all Total Score 0 D ate of Last PHQ-2 (12+) Date of Last PHQ-2 1 03/02/2023 H ealth Literacy Screening Complete (18+) Health Literacy Screening Completed: Y es Date Completed: 0 07/05/2023 How often do you need to have someone help you when you read instructions, forms or other written material from your doctor or pharmacy?: 1 - Never S moking Status (12+) Tobacco use: N onsmoker D ate of Tobacco Screening Date of Tobacco Screening 1 03/02/2023 D epression Screening PHQ-9 (If positive PHQ-2) Little interest or pleasure doing things? M ore than half the days Feeling down, depressed, or hopeless? M ore than half the days Trouble falling or staying asleep, or sleeping too much? M ore than half the days Feeling tired or having little energy? M ore than half the days Poor appetite or overeating? N ot at all Feeling bad about yourself-or that you are failure or have let yourself or family down? N ot at all Trouble concentrating on things, such as reading the newspaper or watching television? N ot at all Moving or speaking so slowly that other people could have noticed. Or the opposite- being so fidgety or restless that you have been moving around a lot more than usual N ot at all Thoughts that you would be better off , or of hurting yourself in some way? N ot at all Total Score 8 Intepretation M ild Depression D ate of Last PHQ-9 Date of Last PHQ 1 03/02/2023 D epression Follow up Is the PHQ score 10+? N o R ecreational Drug Use (12+) In the last year, did you ever use recreational drugs or prescription drugs for non-medical reasons?: Y es What kind of recreational drugs? M arijuana In the last year, did you ever find yourself using drugs more than you meant to?: Y es In the last year, did you ever think maybe you should cut down on drug use?: Y es Date counseled on the affects of recreational drug use 1 03/02/2023 A lcohol Screening (12+) Did you have a drink containing alcohol in the past year? N o Points 0 Interpretation N egative S exual History Had sex in the past 12 months (vaginal, oral, or anal) Y es with M en only Use protection? N o Prevention Strategies discussed: C ondoms Have you ever had an STD? Y es Chlamydia? Y es LMP: 0 08/23/2022 . Are you experiencing fever, cough or shortness of breath? N o . Have you had a dental visit within the last 6 months? Y es Date answered 0 07/05/2023 . Did you have a drink containing alcohol in the past year? N o Points 0 Interpretation N egative . Are you a: n onsmoker . For you and your household, within the last 12 months were you worried that your food supply would run out before you had money to purchase more? S ometimes true For you and your household, within the last 12 months the food bought didn't last, and you didn't have money to purchase more? S ometimes true * Medications: T aking Vitamins 28-0.8 MG Tablet 1 tablet Orally Once a day , Taking Fluticasone Propionate 50 MCG/ACT Suspension 1 spray in each nostril Nasally 1-2 times a day * Allergies: N .K.D.A. Objective: * Vitals: * Examination: C ase Management: Medication Management: Treatment Goals: Assessment: * Assessment: 1. R ight wrist pain - M25.531 (Primary) 2 . I njury of left ankle, initial encounter - S99.912A Plan: * Treatment: 2.?Injury of left ankle, initial encounter?Imaging: Xray: Ankle, left 3 views Complete (Order Cancelled)* Rosa Maria Solorio 01/10/2024 10:01:46 AM RUSSIAN LANGUAGE INSTRUCTOR >pt n/s 3.?Others? Notes: A Healthy Lifestyle: Care Instructions material was printed?? * Procedure Codes: 7 3110 x-ray exam of wrist, Modifiers: [place], [address] X-RAY EXAM OF ANKLE, Modifiers: [place] ALEXIS * Preventive Medicine: Education : N utrition and Physical Activity Counseling for nutrition provided Y es Counseling for physical activity Y es Date Counseled 03/02/2023 P EMAIL PRODUCTION SPECIALIST/Huddle Complete?: Pre-Visit Planning Complete Y es B CT and Dietary Counsultation BMI mgmt provided Y es Dietary counsultation Order Provided?No Date 1 03/02/2023 T obacco Use Patient counseled on the dangers of tobacco use and urged to quit. 1 03/02/2023 Health Maintenance - Adult: . Status: R efused H ep C Screening: Ages 18-79 Status: s creened H IV: Ages 15-65 Status: s creened I nfluenza Vaccination: Age 6Month+ Status: R efused P ap Smear: Ages 21-64) With no Hysterectomy Status: C urrent Last Done: 2 023 Are you currently ? N o P reventative Dental Visit: Status: P ast due pt educated and encouraged to schedule T etanus Vaccination: Status: R efused . Vision Exam: p ast due pt educated and encouraged to schedule * Billing Information: * Visit Code: * Procedure Codes: 15548 x-ray exam of wrist. Modifiers: ALEXIS HOGAN [address]1222 X-RAY EXAM OF ANKLE. Modifiers: ALEXIS HOGAN * Electronic signature of Sruthi Coe on 11/24/2024 at 03:15 PM CDT Sign off status: Pending * Provider: Emmie Lozada APRN Date: 03/02/2023 Generated for Terri sanabria/Cindi/Alphonse on: 0 11/24/2024 03:15 PM CDT History and Physical Notes * Examination Category Sub-Category Detail Notes Case Management Medication Management: Does andre ent/parent/guardian understand treatment plan/diagnosis?: Yes Was a NEW medication prescribed today?: No Patient/parent/guardian states understan ding of medication regimen: Yes Barriers to adherence? : No Date: 01/01/2024 Treatment Goals: Treatment Goal: Reach healthy w eight Date treatment goal established:: 2022 *Has patient met treatment goal?: No Patient re-educated on treatment goal and SM10/24/2023 Self Managment Goal: Exercise (Physical activity daily) Level of confidence to meet goal per pat ient:: 6 Barriers to reaching treatment goal/SMG: No SMG/Action Plan with healthy living shee t given to patient: 01/01/2024 Do you exercise on a regular basis?: No Additional care managment support:: None at this time
--- OUTSIDE RECORDS SUMMARY | 2024-01-01 08:14 | XMS_ITS ---
Author Organization [facility] Accounts Recei vable Address [address] [place] [address] Care Team Providers Care Tractor Mechanic Name Role Phone Jessica Butler Primary Care Provider REASON FOR VISIT ns Social History Sex Assigned At : Social History Observation Description Sex Assigned At Female Encounters Encounter Location Date Provider Diagnosis [facility] Balj[address] [place] [address] [place] [address] 01/01/2024 Jessica Butler Plan Of Treatment No Information Progress Notes * Monica DONG MDOB:1995 (28 yo F)Acc No.[id number]:01/01/2024 Patient: Monica KNOX :1995 A ge:28 Y S ex:Female [address] [place] [address] * true * Date: Generated for Printi ng/Faxing/eTransmitting on: 0 11/24/2024 03:16 PM CDT
--- OUTSIDE RECORDS SUMMARY | 2024-01-09 11:37 | XMS_ITS ---
Author Organization [facility] Accounts Recei vable Address [address] [place] [address] Care Team Providers Care Tractor Mechanic Name Role Phone Jessica Butler Primary Care Provider REASON FOR VISIT Hospital/ER Follow-Up Non TCM* Social History Sex Assigned At : Social History Observation Description Sex Assigned At Female Encounters Encounter Location Date Provider Diagnosis [address] [facility] [place] [address] 01/09/2024 Jessica Butler Plan Of Treatment No Information Progress Notes * Monica DONG MDOB:1995 (28 yo F)Acc No.[id number]:01/09/2024 Patient: Nisha RACHELMonica :1995 A ge:28 Y S ex:Female Address:[address] [facility] [place] [address] * true * Date: Generated for Printi ng/Faxing/eTransmitting on: 0 11/24/2024 03:15 PM CDT
--- OUTSIDE RECORDS SUMMARY | 2024-01-30 03:43 | XMS_ITS ---
Author Organization [facility] Accounts Recei vable Address [address] [place] [address] Care Team Providers Care Painter Spring Name Role Phone Jessica Butler Primary Care Provider [phone] REASON FOR VISIT Transition of Care: Medical* Social History Sex Assigned At : Social History Observation Description Sex Assigned At Female Encounters Encounter Location Date Provider Diagnosis [address] [place] [address] 01/30/2024 Jessica Butler Plan Of Treatment No Information Progress Notes * Monica DONG MDOB:1995 (28 yo F)Acc No.[id number]:01/30/2024 Patient: Jeanne KNOXdesean Keith :1995 A ge:28 Y S ex:Female [place] [place] [address] Subjective: * Chief Complaints: * T ransition of Care: Medical* * HPI: T ransition of Care: Transition of Care Follow-Up T yue's Date 1 04/01/2023 [facility]spital [facility] H ospital[facility] Status I n-Patient H ospitalization Type M edical D ate of Discharge 1 03/30/2023 D ate contacted by [facility] Nurse 1 04/01/2023 * Medical History: * Surgical History: * Hospitalization/Major Diagno stic Procedure: * Medications: Objective: * Vitals: * Physical Examination: Assessment: Plan: * Treatment: * Procedure Codes: * true * Date: Generated for Terri sanabria/Cindi/eTransmitting on: 0 11/24/2024 03:15 PM CDT History and Physical Notes * HPI (History of Present Illness) Category Sub-Category Detail Notes Transition of Care Transition of Care Follow-Up Today' s Date: 01/30/2024 [facility] Status: In-Patient Hospitalization Type: Medical Date of Discharge: 01/28/2024 Date contacted by [facility] Nurse:
--- OUTSIDE RECORDS SUMMARY | 2024-03-03 04:15 | XMS_ITS ---
Author Organization [facility] Address [address] [place], [place] [address] Care Team Providers Care Lawn And Tree Service Spray Supervisor Name Role Phone Renee Silva Primary Care Provider REASON FOR VISIT 2 wk f/u pp depression Encounters Encounter Location Date Provider Diagnosis [facility] [address] [facility] [place] [address] 03/03/2024 Renee Silva Plan Of Treatment No Information Progress Notes * TIFFANY DONGOB:1995 ([age] yo F)Acc No.[id number]:03/03/2024 Progress Notes Patient: SHILA KNOX Provider: Klaus Silva MD :1995 A ge:28 Y S ex:Female Date:03/03/2024 [address] [facility] [place] Subjective: * Chief Complaints: * 1 . 2 wk f/u pp depression. 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 S exual activity c urrently sexually active, with men. L ast pap smear date 0 04/2023. A bnormal pap smear D enies. D ate of Last Period 0 03/29/2023. S exually Transmitted Diseases (STDs) T richomoniasis (Trich). B irth control n one. M enarche: A ge of onset of maternal menarche: 1 5 * OB History: T otal pregnancies 3 . T otal living children 3 . P regnancy # 1: 0 09/19/2018, normal spontaneous vaginal delivery (), [facility] Dr. Zavala, Male . P regnancy # 2: 0 2021:, normal spontaneous vaginal delivery (), [facility] Dr. Zavala, Male infant, 8lb 3oz. P regnancy # 3 1 03/29/2023, normal spontaneous vaginal delivery () @ 40.3 weeks, [facility]- Dr. Silva, Female. Objective: * Vitals: Assessment: Plan: * Treatment: * * Electronic signature of Renee Silva MD on 11/24/2024 at 03:15 PM CDT Sign off status: Pending * Provider: Klaus Silva MD Date: 0 03/03/2024 Generated for Terri sanabria/Cindi/Rajivitting on: 0 11/24/2024 03:15 PM CDT
--- OUTSIDE RECORDS SUMMARY | 2024-03-18 09:30 | XMS_ITS ---
Author Organization [facility] Address [address] [place], [place] [address] Care Team Providers Care Professor Of Practice Name Role Phone Renee Silva Primary Care Provider REASON FOR VISIT 2 wk f/u pp depression Encounters Encounter Location Date Provider Diagnosis [facility] [address] [facility] [place] [address] 03/18/2024 Renee Silva Plan Of Treatment No Information Progress Notes * TIFFANY DONGOB:1995 ([age] yo F)Acc No.[id number]:03/18/2024 Progress Notes Patient: SHILA KNOX Provider: Klaus Silva MD :1995 A ge:28 Y S ex:Female Date:03/18/2024 [address] [facility] Subjective: * Chief Complaints: * 1 . 2 wk f/u pp depression. 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 Zavala, Male . P regnancy # 2: 0 2021:, normal spontaneous vaginal delivery (), [facility] Dr. Zavala, Male infant, 8lb 3oz. P regnancy # 3 1 03/29/2023, normal spontaneous vaginal delivery () @ 40.3 weeks, [facility]- Dr. Silva, Female. Objective: * Vitals: Assessment: Plan: * Treatment: * * Electronic signature of Renee Silva MD on 11/24/2024 at 03:16 PM CDT Sign off status: Pending * Provider: Klaus Silva MD Date: 0 03/18/2024 Generated for Terri sanabria/Cindi/Rajivitting on: 0 11/24/2024 03:16 PM CDT
--- OUTSIDE RECORDS SUMMARY | 2024-04-03 06:20 | XMS_ITS ---
Author Organization [facility] Accounts Recei vable Address [address] [place] [address] Care Team Providers Care Ball Ender Name Role Phone Jessica Butler Primary Care Provider Allergies No Known Allergies Results Component Value Reference Range Notes Urinalysis, Routine Reviewed date:04/03/2024 02:31:32 PM Interpretation: Performing Lab: Notes/Report: Glucose Negative Bilirubin Negative Ketones Negative Specific [place] >=1.030 Blood Trace pH 6.0 Protein Negative Urobilinogen,Semi-Qn 0.2 Nitrite, Urine Positive Leukocyte Estrace Negative CHLAMYDIA/N. GONORRHOEAE RNA , TMA URINE/SURESWAB Reviewed date:04/08/2024 12:13:24 PM Interpretation: Performing Lab:[place], [facility]-[id number] Ramonita Pina, [id number] Haroon Hammond MD Notes/Report: NON-FASTING NON-FASTING CHLAMYDIA TRACHOMATIS RNA, TMA, UROGENITAL NOT DETECTED NOT DETECTED NEISSERIA GONORRHOEAE RNA, TMA, UROGENITAL NOT DETECTED NOT DETECTED CULTURE, URINE, ROUTINE Reviewed date:04/08/2024 12:13:24 PM Interpretation: Performing [facility] Bill [id number] Abel Mendez M.D. Notes/Report: NON-FASTING NON-FASTING URINE CULTURE [id number] Routine Cultures SPECIMEN: Urine SOURCE: URINE FINAL REPORTS Verified Date/Time: 04/05/2024 09:49 MACHINIST 2ND SHIFT 10,000-50,000 cfu/ml Escherichia coli 50,000-100,000 cfu/ml Escherichia coli #2 Mixed urogenital josue also present Order Comments O1: Culture Urine (URINE CULTURE) (C Urine) NON-FASTING NON-FASTING REASON FOR VISIT possible [email or web address] Medications Medication SIG (Take, Route, Frequency, Duration) Notes Start Date End Date Status Cephalexin 500 MG 1 capsule Orally kari ry 6 hrs for 7 days 04/03/2024 Active Vitamins 28-0.8 MG 1 tablet Ora lly [...] Nonsmoker Encounters Encounter Location Date Provider Diagnosis [facility] Baljinder [address] [facility] [place] [address] 04/03/2024 Jessica Luke Dysuria R30.0 ; Acut e UTI N39.0 and Abnormal urinalysis R82.90 Assessments Encounter Date Diagnosis (ICD Code) Assessment Notes Treatment Notes Treatment Clinical Notes 04/03/2024 Dysuria (ICD-10 - R30.0) 04/03/2024 Acute UTI (ICD-10 - N39.0) Discussed and will do UA. Discussed and will send UA for culture. Discussed with ptn will start treatment today and will notify if med change is necessary once culture results are back. Discussed with ptn the importance of hydration. pt has dysuria but also concerned for possible sti due to having unprotected intercourse. we will test her urine for sti. abx sent for uti 04/03/2024 Abnormal urinalysis (ICD-10 - R82.90) 04/03/2024 Other A Healthy Lifestyle: Care Instructions material was printed Plan Of Treatment Medication Medication Name Sig Start Date Stop Date Notes Cephalexin 500 MG 1 capsule Orally every 6 hrs for 7 days 04/03/2024 Treatment Notes Assessment Notes Acute UTI Discussed and will do UA. Discussed and will send UA for culture. Discussed with ptn will start treatment today and will notify if med change is necessary once culture results are back. Discussed with ptn the importance of hydration. Other A Healthy Lifestyle: Care Instructions material was printed Progress Notes * Monica DONG MDOB:1995 (28 yo F)Acc No.[id number]:04/03/2024 Progress Notes Patient: Monica KNOX Provider: Emmie Lozada APRN :1995 A ge:28 Y S ex:Female Date:04/03/2024 Address:[address] [place], [place] [id number] Patient's Default Facility:[facility] Baljinder Check In:11:21 AM CSTCheck O ut:11:43 AM MACHINIST 2ND SHIFT Subjective: * Chief Complaints: * p ossible [email or web address] * HPI: A . General HPI: Established Baljinder client presents in clinic today-she states that she was dx'd with UTI at her OB but has not been taking her meds as directed. She would like to be re screened for UTI as she continues to have pain and pressure. She would also like to be screened for STI as her Partner mentioned something about being swollen down there. Last sex was a couple of days ago. * ROS: R OS: Constitutional Symptoms: D [...] vaginal discharge, breast pain. * Medical History: * Surgical History: r ight foot left capitellar fracture repair 12/06/2018cholecystectomy * Ocular Surgical History: Ocular Surgical History revi ewed with the patient. * Hospitalization/Major Diagno stic Procedure: U pper EXtremity Injury .[facility] 11.29.2018 * Family History: F ather: alive. M other: alive. 1 son(s) - healthy. . * Social History: S ocial Determinants of Health Would you like a staff member from [facility] to help you access community resources that you may qualify for? (Examples: Food, housing, utilities, health insurance, etc) N o P HQ2 (12+) Little interest or pleasure in doing things? N ot at all Feeling down, depressed, or hopeless? N ot at all Total Score 0 D ate of Last PHQ-2 (12+) Date of Last PHQ-2 0 04/03/2024 H ealth Literacy Screening Complete (18+) Health Literacy Screening Completed: Y es Date Completed: 0 07/05/2023 How often do you need to have someone help you when you read instructions, forms or other written material from your doctor or pharmacy?: 1 - Never S moking Status (12+) Tobacco use: N onsmoker D ate of Tobacco Screening Date of Tobacco Screening 0 04/03/2024 D epression Screening PHQ-9 (If positive PHQ-2) [...] of Last PHQ-9 Date of Last PHQ 0 04/03/2024 D epression Follow up Is the PHQ [...] on the affects of recreational drug use 0 04/03/2024 A lcohol Screening (12+) Did you have [...] more? S ometimes true * Medications: T akingPrenatal Vitamins 28-0.8 MG Tablet 1 tablet Orally Once a day Fluticasone Propionate 50 MCG/ACT Suspension 1 spray in each nostril Nasally 1-2 times a day Taking Vitamins 28-0.8 MG Tablet 1 tablet Orally Once a day Taking Fluticasone Propionate 50 MCG/ACT Suspension 1 spray in each nostril Nasally 1-2 times a day * Allergies: N .K.D.A.no[Allergies Verified] Objective: * Vitals: * Examination: C ase Management: Medication Management: Treatment Goals: G eneral Exam: GENERAL APPEARANCE: a lert and oriented, comfortable, cooperative , good color, no acute distress. HEENT: H EAD:, atraumatic, normocephalic, EARS:, tympanic membranes clear and flat bilaterally, EYES:, clear conjuctiva, Extra Ocular Movements Intact (EOMI) bilaterally, eyes normal, no discharge, Pupils Equal, Round, Reactive to Light and Accommodation (PERRLA), NOSE:, nose clear, turbinates normal, THROAT:, pharynx and tonsils normal. HEART: h eart sounds are normal, rhythm is regular, no murmur. CHEST: n ormal shape and expansion, symmetrical. LUNGS: c lear to auscultation bilaterally, no wheezes, rhonchi, rales. ABDOMEN: s oft and not tender, non-distended, bowel sounds: normal, no epigastric tenderness, no guarding, no rebound, no suprapubic tenderness, no masses, no CVA tenderness. Assessment: * Assessment: 1. D ysuria - R30.0 (Primary) 2 . A cute UTI - N39.0 3 .?Abnormal urinalysis - R82.90 Plan: * Treatment: Value Reference Range C HLAMYDIA TRACHOMATIS NOT DETECTED NOT DETECTED - * N EISSERIA GONORRHOEAE NOT DETECTED NOT DETECTED - * Jessica Lozada 04/07/2024 01: 07:24 PM MACHINIST 2ND SHIFT >neg for sti. shows uti. finish abx. Brenda Sullivan 04/08/2024 12:11:30 PM MACHINIST 2ND SHIFT >ttc client-phone is not in service. Sending letter. ?LAB: Urinalysis, Routine (Collection Date & Time - 04/03/2024)* Value Reference Range G lucose Negative * B ilirubin Negative * K etones Negative * S pecific [place] >=1.030 * B lood Trace * p H 6.0 * P rotein Negative * U robilinogen,Semi-Qn 0.2 * N itrite, Urine Positive * L eukocyte Estrace Negative * Malorie Spivey 04/03/2024 11:4 8:28 AM MACHINIST 2ND SHIFT > Culture sent to [facility].Jessica Lozada 04/03/2024 02:31:24 PM MACHINIST 2ND SHIFT >culture sent 2.?Acute UTI? Start Cephalexin Capsule, 500 MG, 1 capsule, Orally, every 6 hrs, 7 days, 28 Capsule, Refills 0. ?LAB: CULTURE, URINE, ROUTINE (Collection Date & Time - 04/03/2024 11:52 AM) * Value Reference Range C ULTURE [id number] - * Jessica Lozada 04/07/2024 01: 07:24 PM MACHINIST 2ND SHIFT >neg for sti. shows uti. finish abx. Brenda Sullivan 04/08/2024 12:11:30 PM MACHINIST 2ND SHIFT >ttc client-phone is not in service. Sending letter. Notes: Discussed and will do UA. Discussed and will send UA for culture. Discussed with ptn will start treatment today and will notify if med change is necessary once culture results are back. Discussed with ptn the importance of hydration.?? Clinical Notes: pt has dysuria but also concerned for possible sti due to having unprotected intercourse. we will test her urine for sti. abx sent for uti ?? 3.?Abnormal urinalysis?LAB: CULTURE, URINE, ROUTINE (Collection Date & Time - 04/03/2024 11:52 AM) * Value Reference Range C ULTURE [id number] - * Jessica Lozada 04/07/2024 01: 07:24 PM MACHINIST 2ND SHIFT >neg for sti. shows uti. finish abx. Brenda Sullivan 04/08/2024 12:11:30 PM MACHINIST 2ND SHIFT >ttc client-phone is not in service. Sending letter. 4.?Others? Notes: A Healthy Lifestyle: Care Instructions material was printed?? * Procedure Codes: 8 1003 URINALYSIS, AUTO, W/O SCOPE, Modifiers: QW 38089 N.GONORRHOEAE, DNA, AMP PROB (Medicaid)39059 CHYLMD TRACH, DNA, AMP PROBE (Medicaid)63433 URINE BACTERIA CULTURE (Medicaid) * Preventive Medicine: Education : N utrition and Physical Activity Counseling for nutrition provided Y es Counseling for physical activity Y es Date Counseled 0 04/03/2024 P MANAGER EMS/Huddle Complete?: Pre-Visit Planning Complete Y es B CA and Dietary Counsultation BMI mgmt provided Y es Dietary counsultation Order Provided?No Date 0 04/03/2024 T obacco Use Patient counseled on the dangers of tobacco use and urged to quit. 0 04/03/2024 Health Maintenance - Adult: . Status: R [...] schedule * Billing Information: * Visit Code: 93173 Office Visit, Est Pt., Level 3. * Procedure Codes: 83216 URINALYSIS, AUTO, W/O SCOPE. Modifiers: QW 82368 N.GONORRHOEAE, DNA, AMP PROB (Medicaid). 44821 CHYLMD TRACH, DNA, AMP PROBE (Medicaid). 14527 URINE BACTERIA CULTURE (Medicaid). * INIST 2ND SHIFT Sign off status: Completed true * Provider: Emmie Lozada APRN Date: 04/03/2024 Generated for Terri sanabria/Cindi/Rajivitting on: 11/24/2024 03:15 PM CDT History and Physical Notes * Examination Category Sub-Category Detail Notes General Exam HEENT: HEAD:, atraumati c, normocephalic, EARS:, tympanic membranes clear and flat bilaterally, EYES:, clear conjuctiva, Extra Ocular Movements Intact (EOMI) bilaterally, eyes normal, no discharge, Pupils Equal, Round, Reactive to Light and Accommodation (PERRLA), NOSE:, nose clear, turbinates normal, THROAT:, pharynx and tonsils normal HEART: heart sounds are nor mal, rhythm is regular, no murmur LUNGS: clear to auscultatio n bilaterally, no wheezes, rhonchi, rales ABDOMEN: soft and not tender, non-distended, bowel sounds: normal, no epigastric tenderness, no guarding, no rebound, no suprapubic tenderness, no masses, no CVA tenderness GENERAL APPEARANCE: alert and oriented, comfortable, cooperative , good color, no acute distress CHEST: normal shape and exp ansion, symmetrical Case Management Medication Management: Does andre ent/parent/guardian understand treatment plan/diagnosis?: Yes Was a NEW medication prescribed today?: No Patient/parent/guardian states understan ding of medication regimen: Yes Barriers to adherence? : No Date: 04/03/2024 Treatment Goals: Treatment Goal: Reach healthy w eight Date treatment goal established:: 2022 *Has patient met treatment goal?: No Patient re-educated on treatment goal and SM04/03/2024 Self Managment Goal: Exercise (Physical activity daily) Level of confidence to meet goal per pat ient:: 6 Barriers to reaching treatment goal/SMG: No SMG/Action Plan with healthy living shee t given to patient: 04/03/2024 Do you exercise on a regular basis?: No Additional care managment support:: None at this time
--- OUTSIDE RECORDS SUMMARY | 2024-06-24 08:15 | XMS_ITS ---
Author Organization [facility] Address [address] [place], [place] [address] Care Team Providers Care Firearms Assembly Supervisor Name Role Phone Renee Silva Primary Care Provider [phone] REASON FOR VISIT F/U on meds Medications Medication SIG (Take, Route, Frequency, Duration) Notes Start Date End Date Status Cephalexin 500 MG TAKE 1 CAPSULE BY MO [facility] EVERY 8 HOURS FOR 7 DAYS Oral; [...] Not-Taking Encounters Encounter Location Date Provider Diagnosis [facility] [address] [facility] [place] [address] 06/24/2024 Renee Silva Plan Of Treatment No Information Progress Notes * SOY, EVDCOB:1995 ([age] yo F)Acc No.[id number]:06/24/2024 Progress Notes Patient: SHILA KNOX Provider: Klaus Silva MD :1995 A ge:28 Y S ex:Female Date:06/24/2024 Address:[address] [place] [address], [id number] Subjective: * Chief Complaints: * [...] Date: 06/24/2024 Generated for Terri sanabria/Cindi/Alphonse on: 11/24/2024 03:15 PM CDT
--- OUTSIDE RECORDS SUMMARY | 2024-11-24 15:15 | XMS_ITS | Patient Health Record ---
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 Name Role Phone Jessica Lozada APRN Primary Care Provider Unavai lable Allergies No Known Allergies Reason For Referral No Information Problems Problem Type SNOMED Code ICD Code Onset Dates Problem Status W/U Status Risk Notes Problem Acute urinary tract infection (991678250) Acute UTI (N39.0) Active confirmed Problem Kidney stone (77962553) Right renal stone (N20.0) Active confirmed Plan Of Treatment Pending Test Test Name Order Date UA Without [id number]-Auto [id number] 08/07/2022 Abdomen [id number] 07/17/2022 Insurance Providers Payer Name Payer Address Payer Phone Subscriber Number Group Number Insured Name Patient Relationship to Insured Coverage Start Date Coverage End Date [place] [address] [place], [place] [id number] Monica Dong Self - patient is the insured Medical (General) History Medical History History ICD Code right renal stone Surgical History Surgery Date(Month/Year) cholecystectomy left elbow fracture repair
--- OUTSIDE RECORDS SUMMARY | 2024-11-24 15:16 | XMS_ITS | Patient Health Record ---
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
[2024-11-24 15:18] VITALS: BP 116/73; PULSE 69; RESP 14; TEMP 36.6; O2SAT 97; BMI 31.5
--- NOTE | 2024-11-24 15:22 | ECG_ITS ---
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 Measurements Intervals [place] Rate: 63 P: 49 CA: 164 QRS: 85 QRSD: 95 T: 59 QT: 399 QTc: 411 Interpretive Statements SINUS RHYTHM WITH SINUS ARRHYTHMIA INCOMPLETE RIGHT BUNDLE BRANCH BLOCK [90+ ms QRS DURATION, TERMINAL R IN V1/V2, 40+ ms S IN I/aVL/V4/V5/V6] Compared to ECG 01/01/2017 00:41:27 Incomplete right bundle-branch block now present Sinus tachycardia no longer present Electronically Signed On 11-27-2024 09:02:50 CDT by James Diaz M.D. [id number]
--- NOTE | 2024-11-24 15:36 | CTR_ITS ---
PROCEDURE INFORMATION: Exam: CT Head Without Contrast Exam date and time: 11/24/2024 4:17 PM Age: 29 years old Clinical indication: Pain; Headache not specified TECHNIQUE: Imaging protocol: Computed tomography of the head without contrast. Radiation optimization: All CT scans at this facility use at least one of these dose optimization techniques: automated exposure control; mA and/or kV adjustment per patient size (includes targeted exams where dose is matched to clinical indication); or iterative reconstruction. COMPARISON: No relevant prior studies available. RADIATION DOSE METRICS: Total DLP (mGy-cm): 1053.08 FINDINGS: Brain: Normal. No hemorrhage. Unremarkable white matter. No mass effect. Cerebral ventricles: No ventriculomegaly. Paranasal sinuses: Visualized sinuses are unremarkable. No fluid levels. Mastoid air cells: Visualized mastoid air cells are well aerated. Bones: Unremarkable. No acute fracture. Soft tissues: Unremarkable. CT/CT head wo con* 10171 IMPRESSION: No acute intracranial hemorrhage.
--- NOTE | 2024-11-24 15:38 | ED_ITS ---
HPI - Headache 2 General: Chief Complaint: Headache Stated Complaint: body feels numb, slight chest pain Time Seen by Provider: 11/24/24 15:15 Source: patient Mode of arrival: ambulatory Limitations: no limitations History of Present Illness: Patient is a 29-year-old female presents to ED today for medical evaluation. Patient states earlier today she all of a sudden felt very nauseous. She does not remember what she was doing when symptoms started. She states that she went to the bathroom to throw up and then began developing dizziness and a headache. She states she has had a headache for several weeks now. 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 She states during this episode she also began developing chest pain and shortness of breath and did not feel right . Also had some blurry vision. Upon arrival to the emergency department she states she feels better. She is no longer having chest pain or shortness of breath. She feels like her nausea is not present unless she moves around. She does not feel dizzy and was ambulatory back to her room without difficulty or assistance. She does still complain of a headache. MD elicited complaint: headache Onset (ago): week(s) Severity: moderate Pain scale (0-10): 6 Exacerbating factors: none Relieving factors: nothing Associated symptoms: Reports chest pain (subsided now), nausea (improved) and vomiting (subsided now); Deny confusion, fever(s), malaise, pre-syncope, rash or syncope Treatments prior to arrival: none Related Data Previous Rx's ?Medication ?Instructions ?Recorded bupropion HCl 150 mg 24 hr tablet, 150 mg PO DAILY 30 days #30 tabs 09/18/24 extended release hydroxyzine pamoate 25 mg capsule 50 mg (2 x 25 mg) PO Q6H PRN 09/18/24 Anxiety 30 days #120 caps olanzapine 5 mg disintegrating 5 mg PO DAILY PRN 09/18 tablet Agitation/Psychosis 30 days #30 tabs trazodone 50 mg tablet 50 mg PO BEDTIME PRN Sleep 3 0 days 09/18/24 #30 tabs cephalexin 500 mg capsule 500 mg PO Q6H 7 days #28 cap s 11/24/24 Allergies Allergy/AdvReac Type Severity Reaction Status Date / Time No Known Allergies Allergy Verified 11/24/24 15:26 Review of Systems 2 Const: Denies: fever(s), chills, body aches, fatigue or malaise Eyes: Reports: blurry vision; Denies: change in vision, photophobia, floaters or seeing flashes ENMT: Denies: throat pain, odynophagia, ear or mastoid pain, nasal discharge, nasal congestion or sinus pain Card: Reports: chest pain (subsided now); Denies: palpitations, irregular heart rhythm, edema, swelling of feet/ankles, syncope, pre-syncope, dyspnea on exertion, orthopnea, leg pain with exertion or acrocyanosis Resp: Reports: dyspnea (subsided now); Denies: productive cough, non-productive cough, pain on inspiration, change in phlegm color or chest congestion GI: Reports: nausea (improved) and vomiting (subsided now); Denies: abdominal pain : Denies: flank pain or dysuria Musc: Denies: neck pain, back pain, extremity pain, extremity swelling or joint pain Skin/Breast: Denies: rash Neuro: Reports: headache(s); Denies: numbness in extremities, weakness in extremities, sensory changes, difficulty walking, frequent falls, confusion, Slurred speech present or difficulty communicating thoughts [facility] 2 Female Reproductive History: Date of last menstrual period: 11/19/24 Physical Exam 2 Const: COMMON NORMALS: no acute distress, average body habitus, patient oriented x3, no limitations, alert and well nourished GENERAL APPEARANCE: c ooperative HENMT: COMMON NORMALS: normocephalic and atraumatic HEAD & SCALP: normal to inspection, normocephalic and atraumatic FACE & SINUS: normal facial exam and face symmetric Eye: COMMON NORMALS: Equal, round and reactive pupils present and EOMs intact bilaterally GENERAL EYE: appearance normal, both eyes and all related structures and normal light reflex PUPIL: Yes Equal, round and reactive pupils present DIRECT OPHTHALMOSCOPY: Yes normal light reflex OTHER: no nystagmus Neck/C-Spine: COMMON NORMALS: full ROM, no lymphadenopathy, supple and no meningeal signs Chest: COMMONS NORMALS: normal inspection of the chest Resp: COMMON NORMALS: normal respiratory effort and clear to auscultation bilaterally AUSCULTATION: clear to auscultation bilaterally Cardio: COMMON NORMALS: regular rate and regular rhythm RATE: regular rate RHYTHM: regular rhythm GI: COMMON NORMALS: Normal to inspection, nondistended, normoactive bowel sounds present, Soft to palpation, non-tender, No hepatosplenomegaly present and no masses PALPATION: Yes Soft to palpation and Yes No hepatosplenomegaly present : COMMON NORMALS: Yes no CVA tenderness BLADDER/KIDNEY EXAM: Yes no CVA tenderness Back/Pelvis: COMMON NORMALS: no CVA tenderness and thoracic and lumbar spine normal to inspection Extremity: COMMON NORMALS: normal to inspection, capillary refill normal, no clubbing, cyanosis or edema, no calf tenderness and no pedal edema GENERAL: Y es normal exam except as noted Neuro: EMILIANO COMA SCALE: document GCS findings Emiliano coma scale eye opening: Spontaneous Emiliano coma scale verbal response: Orientated Emiliano coma scale motor response: Obey commands Emiliano coma scale total score: 15 COMMON NORMALS: patient oriented x3, CN's II-XII intact bilaterally, moves all extremities, no focal motor deficits, no sensory deficits noted and gait normal SENSORIUM/ORIENTATION: Yes alert MENINGEAL SIGNS: Yes no meningeal signs Skin: COMMON NORMALS: no rashes or lesions noted GENERAL SKIN EXAM: no rashes or lesions noted Course 2 Vital Signs: Vital signs: Vital Signs Temperature 97.8 F 11/24/24 15:18 Pulse Rate 53 L 11/24/24 16:49 Respiratory Rate 16 11/24/24 16:49 Blood Pressure 120/57 11/24/24 16:49 Pulse Oximetry 98 11/24/24 16:49 Oxygen Delivery Me thod Room Air 11/24/24 16:49 MDM - Headache Medical Decision Making Upon re-examination patient is resting comfortably in no acute distress. She is rating her headache at a 0/10. She has not had any episodes of chest pain or shortness of breath during her emergency department stay. She has no focal neurologic deficits. Vital signs are stable. Blood work overall is unremarkable. UA slightly suspicious for infection with positive nitrates, 1+ leukocyte esterase, 5-10 WBCs, and 2+ bacteria. Some degree of contamination. Will place on antibiotics. Recommend she follow-up with primary care later this week. Return to ED precautions discussed. Medical Records I reviewed the patient's medical records. Lab Data I reviewed the patient's lab results. 11/24/24 15:57 11/24/24 15:[address] 11/24/24 15:36 IMPRESSION: No acute intracranial hemorrhage. Laboratory Results WBC 8.03 10^3/uL (3.29-11.43) 11/24/24 15:57 RBC 4.17 10^6/uL (3.85-5.65) 11/24/24 15:57 Hgb 13.20 g/dL (11.27-16.99) 11/24/24 15:57 Hct 40.0 % (36-47) 11/24/24 15:57 MCV 95.9 fl (85-98) 11/24/24 15:57 MCH 31.7 pg (27-33) 11/24/24 15:57 MCHC 33.0 g/dL (30-55) 11/24/24 15:57 RDW 13.0 % (12.1-15.1) 11/24/24 15:57 Plt Count 293 10^3/cmm (157-399) 11/24/24 15:57 MPV 9.9 fL (7.4-10.4) 11/24/24 15:57 Neut % (Auto) 65.9 % 11/24/24 15:57 Lymph % (Auto) 26.7 % 11/24/24 15:57 [place] % (Auto) 5.0 % 11/24/24 15:57 Eos % (Auto) 1.6 % 11/24/24 15:57 Baso % (Auto) 0.6 % 11/24/24 15:57 Neut # (Auto) 5.29 10^3/uL (1.8-7.7) 11/24/24 15:57 Lymph # (Auto) 2.1 10^3/uL (0.8-4.8) 11/24/24 15:57 [place] # (Auto) 0.4 10^3/uL (0.2-0.9) 11/24/24 15:57 Eos # (Auto) 0.1 10^3/uL (0.0-0.8) 11/24/24 15:57 Baso # (Auto) 0.1 10^3/uL (0.0-0.1) 11/24/24 15:57 Nucleated RBC % (auto) 0 % 11/24/24 15:57 Nucleated RBCs # 0.0 /100WBC 11/24/24 15:57 Sodium 143 mmol/L (136-145) 11/24/24 15:57 Potassium 3.8 mmol/L (3.5-5.1) 11/24/24 15:57 Chloride 108 mmol/L (98-107) H 11/24/24 15:57 Carbon Dioxide 26 mmol/L (22-29) 11/24/24 15:57 Anion Gap 12.8 (5-19) 11/24/24 15:57 BUN 14 mg/dL (6-20) 11/24/24 15:57 Creatinine 0.7 mg/dL (0.5-0.9) 11/24/24 15:57 GFR Calculation 100.4 mL/min (90-130) 11/24/24 15:57 Glucose 100 mg/dL (65-115) 11/24/24 15:57 Calculated Osmolality 297 mOsm/kg (285-295) H 11/24/24 15:57 Calcium 9.0 mg/dL (8.5-10.5) 11/24/24 15:57 Total Bilirubin 0.5 mg/dL (0.15-1.2) 11/24/24 15:57 AST 12 U/L (0-32) 11/24/24 15:57 ALT 10 U/L (0-33) 11/24/24 15:57 Alkaline Phosphatase 90 U/L (35-105) 11/24/24 15:57 Total Protein 6.5 g/dL (6.6-8.7) L 11/24/24 15:57 Albumin 4.2 g/dL (3.5-5.2) 11/24/24 15:57 Globulin 2.3 g/dL (1.3-4.6) 11/24/24 15:57 HCG, Qual Negative (Negative) 11/24/24 16:10 Urine Color Yellow (Yellow) 11/24/24 16:10 Urine Appearance Cloudy (CLEAR) A 11/24/24 16:10 Urine pH 6.0 (5-7) 11/24/24 16:10 Ur Specific [place] 1.019 (1.005-1.030) 11/24/24 16:10 Urine Protein Negative (Negative) 11/24/24 16:10 Urine Glucose (UA) Negative (Normal) 11/24/24 16:10 Urine Ketones Negative (Negative) 11/24/24 16:10 Urine Blood Negative (Negative) 11/24/24 16:10 Urine Nitrate Positive (Negative) A 11/24/24 16:10 Urine Bilirubin Negative (Negative) 11/24/24 16:10 Urine Urobilinogen 1.0 mg/dL (Negative) 11/24/24 16:10 Ur Leukocyte Esterase 1+ (Negative) A 11/24/24 16:10 Urine RBC 0-4 /hpf (0-2) H 11/24/24 16:10 Urine WBC 5-10 /hpf (0-5) H 11/24/24 16:10 Ur Squamous Epith Cells 5-10 /hpf (0-5) H 11/24/24 16:10 Amorphous Sediment Not Reportable 11/24/24 16:10 Urine Bacteria 2+ /hpf (NONE) H 11/24/24 16:10 Hyaline Casts Rare /lpf 11/24/24 16:10 Urine Mucus 1+ /hpf 11/24/24 16:10 All radiology interpretation(s) finalized by discharge Discharge Plan Discharge Patient Disposition: Home Clinical Impression: Headache Qualifiers: Headache type: unspecified Headache chronicity pattern: acute headache I ntractability: not intractable Qualified Code(s): R51.9 - Headache, unspecified UTI (urinary tract infection) Qualifiers: Urinary tract infection type: acute cystitis Hematuria presence: without hematuria Qualified Code(s): N30.00 - Acute cystitis without hematuria Condition: Stable Prescriptions: New cephalexin 500 mg capsule 500 mg PO Q6H 7 Days Qty: 28 0RF No Action trazodone 50 mg Tablet 50 mg PO BEDTIME PRN (Reason: Sleep) 30 Days Qty: 30 1RF olanzapine 5 mg Tablet,Disintegrating 5 mg PO DAILY PRN (Reason: Agitation/Psychosis) 30 Days Qty: 30 1RF hydroxyzine pamoate 25 mg Capsule 50 mg PO Q6H PRN (Reason: Anxiety) 30 Days Qty: 120 1RF bupropion HCl 150 mg Tablet Extended Release 24 Hr 150 mg PO DAILY 30 Days Qty: 30 1RF Discharge Orders: Discharge ED (Routine); Ordered 11/24/24 Ordered By: Lanie Krueger Patient Instructions: Patient Portal & Mitesh Instructions Activity Restrictions/Additional Instructions: As we discussed, your head CT was unremarkable. Blood work overall looked good. Urine was suspicious for a urinary tract infection. Will place you on antibiotics. I would like you to follow-up with your primary care provider later this week for reevaluation. You need to return to the emergency department for any further concerns you may have. I hope you begin to feel better soon. Print Language: Hong Konger Coding Level of Care Code ED [employer] for Kian Perez
[2024-11-24 16:20] LABS: Hematocrit 40.0 % (36-47); Hemoglobin 13.20 g/dL (11.27-16.99); Mean Corpuscular HGB Conc 33.0 g/dL (30-55); Mean Corpuscular Hemoglobin 31.7 pg (27-33); Mean Corpuscular Volume 95.9 fl (85-98); Nucleated Red Blood Cells % 0 %; Platelet Count 293 10^3/cmm (157-399); Red Blood Count 4.17 10^6/uL (3.85-5.65); White Blood Count 8.03 10^3/uL (3.29-11.43)
[2024-11-24 16:27] LABS: Glucose Urine UA Negative (Normal); Nitrate Urine Positive (Negative); Specific Gravity, Urine 1.019 (1.005-1.030)
[2024-11-24] MEDS: diphenhydrAMINE 50 mg/mL SDV 1mL 25 MG IVP (16:27)
[2024-11-24 16:28] LABS: Alanine Aminotransferase 10 U/L (0-33); Albumin Level 4.2 g/dL (3.5-5.2); Alkaline Phosphatase 90 U/L (35-105); Anion Gap 12.8 (5-19); Aspartate Amino Transferase 12 U/L (0-32); Blood Urea Nitrogen 14 mg/dL (6-20); Calcium 9.0 mg/dL (8.5-10.5); Carbon Dioxide 26 mmol/L (22-29); Chloride 108 mmol/L (98-107); Creatinine Clr Calc Pharmacy 154.3966; Globulin 2.3 g/dL (1.3-4.6); Glucose 100 mg/dL (65-115); Osmolality Calculated 297 mOsm/kg (285-295); Potassium 3.8 mmol/L (3.5-5.1); Sodium 143 mmol/L (136-145); Total Protein 6.5 g/dL (6.6-8.7)
[2024-11-24] MEDS: ondansetron 2 mg/ML SDV 2 mL 4 MG IVP (16:28)
[2024-11-24 16:32] LABS: Add Urine Microscopic? YES; UA Manual Slide Review YES
[2024-11-24 16:49] VITALS: BP 120/57; PULSE 53; RESP 16; O2SAT 98
[2024-11-24 17:12] LABS: HCG Qualitative Urine. Negative (Negative)
[2024-11-24 17:28] VITALS: BP 123/75; PULSE 69; RESP 14; O2SAT 97
== END 2024-11-24 17:37 | disposition home or self-care (01) ==
PROVIDERS: Emergency Provider Physician Assistant
DX: R51.9 Headache, unspecified (principal); N30.00 Acute cystitis without hematuria
CPT/HCPCS: 36415; 70450; 80053; 81001; 81025; 85025; 87077; 87086; 87186; 93005; 96374; 96375; 99285; J1200; J1885; J2405; J7030

== ENCOUNTER 2025-02-08 01:46 | Emergency (ER) | payer MEDICAID, SELFPAY ==
[2025-02-08 01:59] VITALS: BP 124/100; PULSE 97; RESP 18; TEMP 36.6; O2SAT 97; BMI 30.1
--- NOTE | 2025-02-08 02:38 | CTR_ITS ---
PROCEDURE INFORMATION: Exam: CT Abdomen And Pelvis With Contrast Exam date and time: 02/08/2025 3:02 AM Age: 29 years old Clinical indication: Abdominal pain; Localized; Left lower quadrant (llq); Prior surgery; Surgery date: 6+ months; Surgery type: Gb; C/O llq pain TECHNIQUE: Imaging protocol: Computed tomography of the abdomen and pelvis with contrast. Radiation optimization: All CT scans at this facility use at least one of these dose optimization techniques: automated exposure control; mA and/or kV adjustment per patient size (includes targeted exams where dose is matched to clinical indication); or iterative reconstruction. Contrast material: OMNI 350; Contrast volume: 100 ml; Contrast route: INTRAVENOUS (IV); COMPARISON: CR XR chest 1V portable [id number] 09/15/2024 1:00 PM RADIATION DOSE METRICS: Total DLP (mGy-cm): 840.25 FINDINGS: Liver: Normal. No mass. Gallbladder and biliary ducts: Cholecystectomy. Pancreas: Normal. No ductal dilation. Spleen: Normal. No splenomegaly. Adrenal glands: Normal. No mass. Kidneys and ureters: Positive for bilateral pyelonephritis. Nonobstructing 2 mm, 1 mm, and 3 mm right lower pole renal stones. Stomach and bowel: Unremarkable. No obstruction. No mucosal thickening. Appendix: No evidence of appendicitis. Intraperitoneal space: Unremarkable. No free air. No significant fluid collection. Vasculature: Unremarkable. No abdominal aortic aneurysm. Lymph nodes: Unremarkable. No enlarged lymph nodes. Urinary bladder: Unremarkable as visualized. Reproductive: Left ovarian follicle/cyst measures 1.2 cm. Bones/joints: Unremarkable. No acute fracture. Soft tissues: Unremarkable. CT/CT abdomen pelvis w con* [id number] IMPRESSION: 1. Positive for bilateral pyelonephritis. 2. Nonobstructing 1 mm, 2 mm, and 3 mm right lower pole renal stones.
[2025-02-08 02:47] VITALS: RESP 17; O2SAT 98
[2025-02-08] MEDS: ondansetron 2 mg/ML SDV 2 mL 4 MG IVP (02:47)
[2025-02-08] MEDS: morphine 4 mg/mL SDV 1 mL IVP (02:47)
[2025-02-08 02:50] LABS: Glucose Urine UA Negative (Normal); Nitrate Urine Positive (Negative); Specific Gravity, Urine 1.016 (1.005-1.030)
[2025-02-08 02:55] LABS: Add Urine Microscopic? YES
[2025-02-08 02:55] LABS: Hematocrit 40.2 % (36-47); Hemoglobin 13.40 g/dL (11.27-16.99); Mean Corpuscular HGB Conc 33.3 g/dL (30-55); Mean Corpuscular Hemoglobin 31.4 pg (27-33); Mean Corpuscular Volume 94.1 fl (85-98); Nucleated Red Blood Cells % 0 %; Platelet Count 337 10^3/cmm (157-399); Red Blood Count 4.27 10^6/uL (3.85-5.65); White Blood Count 14.02 10^3/uL (3.29-11.43)
[2025-02-08] MEDS: iohexol 350 mg/mL 500 mL Btl (per mL) IV (03:04)
[2025-02-08 03:14] LABS: HCG, Serum Qual Negative (Negative)
[2025-02-08 03:24] LABS: Alanine Aminotransferase 13 U/L (0-33); Albumin Level 3.9 g/dL (3.5-5.2); Alkaline Phosphatase 103 U/L (35-105); Anion Gap 15.9 (5-19); Aspartate Amino Transferase 12 U/L (0-32); Blood Urea Nitrogen 8 mg/dL (6-20); Calcium 8.6 mg/dL (8.5-10.5); Carbon Dioxide 21 mmol/L (22-29); Chloride 106 mmol/L (98-107); Creatinine Clr Calc Pharmacy 150.9388; Globulin 2.8 g/dL (1.3-4.6); Glucose 107 mg/dL (65-115); Lipase 18 U/L (13-60); Osmolality Calculated 287 mOsm/kg (285-295); Potassium 3.9 mmol/L (3.5-5.1); Sodium 139 mmol/L (136-145); Total Protein 6.7 g/dL (6.6-8.7)
[2025-02-08] MEDS: cefTRIAXone 1,000 mg SDV 1000 MG IVP (03:30)
--- NOTE | 2025-02-08 03:42 | W.ED.ABDPA2 ---
HPI - Abdominal Pain General: Chief Complaint: Abdominal Pain Stated Complaint: lt low abd pain from front to back Time Seen by Provider: 02/08/25 02:04 History of Present Illness: Patient is a 29-year-old female presenting with abdominal pain that started yesterday. She reports the pain has been persistent and not resolving despite attempts to wait it out. Patient experienced vomiting yesterday and reports ongoing nausea tonight without further emesis. She denies diarrhea, fever, blood in stool, or dysuria. Patient reports difficulty breathing associated with pain, noting that when she becomes anxious about the pain, her breathing becomes heavier which exacerbates the discomfort. She took ibuprofen at approximately 6:30 PM today with minimal relief. On questioning, patient reports tenderness in both right and left lower quadrants of the abdomen. Patient has history of gallbladder surgery and kidney stones. Related Data Previous Rx's ?Medication ?Instructions ?Recorded bupropion HCl 150 mg 24 hr tablet, 150 mg PO DAILY 30 days #30 tabs 09/18/24 extended release hydroxyzine pamoate 25 mg capsule 50 mg (2 x 25 mg) PO Q6H PRN 09/18/24 Anxiety 30 days #120 caps olanzapine 5 mg disintegrating 5 mg PO DAILY PRN 09/18/24 tablet Agitation/Psychosis 30 days #30 tabs trazodone 50 mg tablet 50 mg PO BEDTIME PRN Sleep 30 days 09/18/24 #30 tabs cefdinir 300 mg capsule 300 mg PO BID #14 caps 02/08/25 ondansetron 4 mg disintegrating 4 mg PO Q6H PRN nausea and 02/08/25 tablet vomiting #14 tabs oxycodone-acetaminophen 7.5 mg-325 1 tab PO Q6H PRN pain #10 tabs 02/08/25 mg tablet (Percocet) Allergies Allergy/AdvReac Type Severity Reaction Status Date / Time No Known Allergies Allergy Verified 02/08/25 02:01 Physical Exam Const: COMMON NORMALS: no acute distress GENERAL APPEARANCE: cooperative and ill appearing (Mildly) HENMT: COMMON NORMALS: normocephalic, atraumatic and Normal external nose present HEAD & SCALP: normocephalic and atraumatic FACE & SINUS: normal facial exam and face symmetric NOSE: Normal external nose present Eye: COMMON NORMALS: Equal, round and reactive pupils present and EOMs intact bilaterally PUPIL: Yes Equal, round and reactive pupils present Neck/C-Spine: GENERAL: Yes trachea midline Chest: CHEST: Yes Symmetrical chest wall rise Resp: COMMON NORMALS: normal respiratory effort, No retractions, No use of accessory muscles and clear to auscultation bilaterally AUSCULTATION: clear to auscultation bilaterally Cardio: COMMON NORMALS: regular rate and regular rhythm RATE: regular rate RHYTHM: regular rhythm GI: COMMON NORMALS: Normal to inspection, nondistended, normoactive bowel sounds present : BLADDER/KIDNEY EXAM: Yes CVA tenderness bilateral Back/Pelvis: GENERAL BACK: Yes CVA tenderness Extremity: COMMON NORMALS: no pedal edema Neuro: EMILIANO COMA SCALE: document GCS findings [place] coma scale eye opening: Spontaneous Emiliano coma scale verbal response: Orientated Emiliano coma scale motor response: Obey commands Emiliano coma scale total score: 15 SENSORY EXAM: Yes extremities (intact) Psych: COMMON NORMALS: speech normal SPEECH: Yes normal speech Skin: COMMON NORMALS: no rashes or lesions noted GENERAL SKIN EXAM: no rashes or lesions noted Course Vital Signs: Vital signs: Vital Signs Temperature 98 F 02/08/25 01:59 Pulse Rate 97 02/08/25 01:59 Respiratory Rate 17 02/08/25 02:47 Blood Pressure 124/100 02/08/25 01:59 Pulse Oximetry 98 02/08/25 02:47 MDM - Abdominal Pain Medical Decision Making Patient is mildly hypertensive. She is afebrile. White blood cell count is 14. Bicarb is 21. She has urinary tract infection findings on UTI with hematuria. Her CRP is 52. Lipase is 18. CT is positive for bilateral pyelonephritis without obstructing stone. She is given Rocephin and fluid here. She is stable for discharge. Outpatient treatment with antibiotics, antiemetics, pain medication and hydration. Lab Data 02/08/25 02:50 02/08/25 02:50 Labs/Radiology: Radiology Impressions Abdomen/Pelvis CT 02/08/25 02:38 IMPRESSION: 1. Positive for bilateral pyelonephritis. 2. Nonobstructing 1 mm, 2 mm, and 3 mm right lower pole renal stones. Laboratory Results WBC 14.02 10^3/uL (3.29-11.43) H 02/08/25 02:50 RBC 4.27 10^6/uL (3.85-5.65) 02/08/25 02:50 Hgb 13.40 g/dL (11.27-16.99) 02/08/25 02:50 Hct 40.2 % (36-47) 02/08/25 02:50 MCV 94.1 fl (85-98) 02/08/25 02:50 MCH 31.4 pg (27-33) 02/08/25 02:50 MCHC 33.3 g/dL (30-55) 02/08/25 02:50 RDW 12.5 % (12.1-15.1) 02/08/25 02:50 Plt Count 337 10^3/cmm (157-399) 02/08/25 02:50 MPV 9.0 fL (7.4-10.4) 02/08/25 02:50 Neut % (Auto) 79.8 % 02/08/25 02:50 Lymph % (Auto) 11.4 % 02/08/25 02:50 [place] % (Auto) 7.6 % 02/08/25 02:50 Eos % (Auto) 0.4 % 02/08/25 02:50 Baso % (Auto) 0.5 % 02/08/25 02:50 Neut # (Auto) 11.19 10^3/uL (1.8-7.7) H 02/08/25 02:50 Lymph # (Auto) 1.6 10^3/uL (0.8-4.8) 02/08/25 02:50 [place] # (Auto) 1.1 10^3/uL (0.2-0.9) H 02/08/25 02:50 Eos # (Auto) 0.1 10^3/uL (0.0-0.8) 02/08/25 02:50 Baso # (Auto) 0.1 10^3/uL (0.0-0.1) 02/08/25 02:50 Nucleated RBC % (auto) 0 % 02/08/25 02:50 Nucleated RBCs # 0.0 /100WBC 02/08/25 02:50 Sodium 139 mmol/L (136-145) 02/08/25 02:50 Potassium 3.9 mmol/L (3.5-5.1) 02/08/25 02:50 Chloride 106 mmol/L (98-107) 02/08/25 02:50 Carbon Dioxide 21 mmol/L (22-29) L 02/08/25 02:50 Anion Gap 15.9 (5-19) 02/08/25 02:50 BUN 8 mg/dL (6-20) 02/08/25 02:50 Creatinine 0.7 mg/dL (0.5-0.9) 02/08/25 02:50 GFR Calculation 100.4 mL/min (90-130) 02/08/25 02:50 Glucose 107 mg/dL (65-115) 02/08/25 02:50 Calculated Osmolality 287 mOsm/kg (285-295) 02/08/25 02:50 Calcium 8.6 mg/dL (8.5-10.5) 02/08/25 02:50 Total Bilirubin 0.5 mg/dL (0.15-1.2) 02/08/25 02:50 AST 12 U/L (0-32) 02/08/25 02:50 ALT 13 U/L (0-33) 02/08/25 02:50 Alkaline Phosphatase 103 U/L (35-105) 02/08/25 02:50 C-Reactive Protein 52.0 mg/L (0.0-4.9) H 02/08/25 02:50 Total Protein 6.7 g/dL (6.6-8.7) 02/08/25 02:50 Albumin 3.9 g/dL (3.5-5.2) 02/08/25 02:50 Globulin 2.8 g/dL (1.3-4.6) 02/08/25 02:50 Lipase 18 U/L (13-60) 02/08/25 02:50 HCG, Qual Negative (Negative) 02/08/25 02:50 Urine Color Yellow (Yellow) 02/08/25 02:13 Urine Appearance Cloudy (CLEAR) A 02/08/25 02:13 Urine pH 6.5 (5-7) 02/08/25 02:13 Ur Specific [place] 1.016 (1.005-1.030) 02/08/25 02:13 Urine Protein 1+ (Negative) A 02/08/25 02:13 Urine Glucose (UA) Negative (Normal) 02/08/25 02:13 Urine Ketones Negative (Negative) 02/08/25 02:13 Urine Blood 2+ (Negative) A 02/08/25 02:13 Urine Nitrate Positive (Negative) A 02/08/25 02:13 Urine Bilirubin Negative (Negative) 02/08/25 02:13 Urine Urobilinogen 0.2 mg/dL (Negative) 02/08/25 02:13 Ur Leukocyte Esterase 1+ (Negative) A 02/08/25 02:13 Urine RBC 11-20 /hpf (0-2) H 02/08/25 02:13 Urine WBC 21-50 /hpf (0-5) H 02/08/25 02:13 Ur Squamous Epith Cells 6-10 /hpf (0-5) 02/08/25 02:13 Amorphous Sediment Not Reportable 02/08/25 02:13 Urine Bacteria 4+ /hpf (NONE) H 02/08/25 02:13 Hyaline Casts 2.46 /lpf 02/08/25 02:13 All radiology interpretation(s) finalized by discharge Discharge Plan Discharge Patient Disposition: Home Clinical Impression: Pyelonephritis Condition: Stable Prescriptions: New oxycodone-acetaminophen [Percocet] 7.5-325 mg tablet 1 tab PO Q6H PRN (Reason: pain) Qty: 10 0RF ondansetron 4 mg tablet,disintegrating 4 mg PO Q6H PRN (Reason: nausea and vomiting) Qty: 14 0RF cefdinir 300 mg capsule 300 mg PO BID Qty: 14 0RF No Action trazodone 50 mg Tablet 50 mg PO BEDTIME PRN (Reason: Sleep) 30 Days Qty: 30 1RF olanzapine 5 mg Tablet,Disintegrating 5 mg PO DAILY PRN (Reason: Agitation/Psychosis) 30 Days Qty: 30 1RF hydroxyzine pamoate 25 mg Capsule 50 mg PO Q6H PRN (Reason: Anxiety) 30 Days Qty: 120 1RF bupropion HCl 150 mg Tablet Extended Release 24 Hr 150 mg PO DAILY 30 Days Qty: 30 1RF Discharge Orders: Discharge ED (Routine); Ordered 02/08/25 Ordered By: [place] Patient Instructions: Kidney Infection (ED), Abdominal Pain (ED), Opioid Safety, Pain Management, Patient Portal & Mitesh Instructions Activity Restrictions/Additional Instructions: Antibiotics as directed. You may use pain medication as needed. Alternate with ibuprofen or other anti-inflammatory. Take nausea medication scheduled for the next 24 hours, then as needed. Hydrate. Return for worsening symptoms despite treatment. 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
[2025-02-08] MEDS: oxyCODONE-APAP 5-325 mg Tablet 2 TAB PO (04:59)
== END 2025-02-08 05:01 | disposition home or self-care (01) ==
PROVIDERS: Emergency Provider Emergency Medicine
DX: N12 Tubulo-interstitial nephritis, not specified as acute or chronic (principal)
CPT/HCPCS: 36415; 74177; 80053; 81001; 83690; 84703; 85025; 86140; 87086; 96374; 96375; 99285; J0696; J1885; J2270; J2405; J7030; J9999; Q0162